=== PATIENT | male | born 1975 | race Caucasian/White ===

== ENCOUNTER → 2025-02-28 12:44 | Outpatient (REF) | payer BC, SELFPAY | LOC: HWRCS 12:44 | PROVIDERS: ATTENDING PHYSICIAN Internal Medicine Cardiovascular Disease; FAMILY PHYSICIAN Family Medicine | DX: R06.02 Shortness of breath (principal) | CPT/HCPCS: 93306 ==

== ENCOUNTER 2025-03-01 11:48 | Inpatient (IN) | payer BC, SELFPAY ==
[2025-03-01] VITALS (14 sets, daily range): BP systolic 106–150; BP diastolic 74–93; BMI 28.7
--- NOTE | 2025-03-01 10:48 | ED.GENMED ---
History of Present Illness
General
Chief Complaint: Cardiac Symptoms
Time Seen by Provider: 03/01/25 10:39
History of Present Illness
History of Present Illness:
50-year-old male presents the emergency department from cardiac services due to an abnormal stress test. He has been having exertional chest discomfort ongoing for the past year. States he had only minimal chest discomfort during the stress test
and is asymptomatic currently. No recent fevers or chills. Normally takes baby aspirin but has not taken for the past several weeks.
Review of Systems
Review of Systems
Allergies reviewed?: Yes
All Other Systems: ROS reviewed and negative except as documented in HPI and ROS
Phy Exam
Physical Exam
Physical Exam:
GEN: Well appearing, NAD, WDWN
HEENT: Oral mucosa moist, no scleral icterus
Cardiac: Regular rate and rhythm, no murmurs
Lung: No respiratory distress, no tachypnea
MSK: No gross deformity or injuries
Skin: Good color, no pallor or jaundice, no rashes
Neuro: AO x3, moves all extremities freely
Psych: Calm, cooperative
Course
Orders/Labs/Results
Orders:
Orders
03/01/25 Lunch
NPO
Allow oral meds: Yes
Allow clear liquids: No
NPO with Ice Chips: No
03/01/25 10:33
Electrocardiogram (*1) Urgent
Reason for Study: Chest Pain
EKG- Treatment ONCE
03/01/25 10:40
CR Chest - 2 Views Urgent
Comment:
Reason For Exam: chest pain
03/01/25 10:48
Aspirin Chewable [Low Strength Aspirin] 324 mg PO NOW STA
03/01/25 11:11
Complete Blood Count/With Diff Urgent
Comprehensive Metabolic Panel Urgent
Troponin I Urgent
03/01/25 11:18
Admit/Transfer Patient As Directed
Co-Sign Provider:
Level of Care: Inpatient admission
Assign to:: IVU
Physician / Group: TERRELL, Dr. Cooper
Diagnosis: Chest pain, abnormal stress test
Reason for Hospitalization: Chest pain, abnormal stress test
Expected length of stay greater than two midnights?: Yes
ELOS- Estimated Length of Stay in days: 2
I certify the patient meets the requirements for IP care: Yes
PRN Pain Medication Management As Directed
May give lesser potent ordered pain med per pt: Yes
preference::
Protocol:: Medication orders for pain may be administered in a
manner that supports deferring to patient preference
when the pt is:
- Requesting an ordered lesser potent pain medication.
Least to most potent pain medications are defined
as: acetaminophen < NSAID < tramadol < opioids
(morphine, oxycodone, hydromorphone).
- Requesting a lesser dose of the same medication IF
ORDERED.
- Requesting a less intrusive route of administration
if both routes are prescribed by the provider (PO <
IV).
03/01/25 11:20
Code Status As Directed
Resuscitation Status: Full Code
03/01/25 14:37
Bisacodyl [Dulcolax] 10 mg RECTAL [id number] PRN
Docusate W/Senna [Senokot-S] 1 tablet PO BIDPRN PRN
Polyethylene Glycol Powder [Miralax] 17 grams PO DAILYPRN PRN
03/01/25 14:37
Activity As Directed
Activity Level: Bathroom Privileges
Vital Signs As Directed
Frequency: Per unit guidelines
DX Deep Vein Thrombosis Video Routine
03/01/25 18:00
Enoxaparin Sodium [Lovenox] 40 mg SC QPM
03/02/25 06:00
Electrocardiogram (*1) IN AM
Reason for Study: Chest Pain
Cardiology Consult: Iza Cooper
Basic Metabolic Panel IN AM
03/02/25 08:00
Amitriptyline [Elavil] 50 mg PO DAILY
Rosuvastatin Calcium [Crestor] 10 mg PO DAILY
finasteride See Dose Instructions PO DAILY
tadalafil See Dose Instructions PO DAILY
thyroid (pork) [PHARMACY STUDENT Thyroid] See Dose Instructions PO DAILY
Abnormal Lab Results
03/01/25
11:11
WBC 4.1 L 10^3/uL
(4.8-10.8)
Immature Gran % 0.7 H %
(0-0.5)
Monocytes % 10.2 H %
(1.7-9.3)
Glucose 105 H mg/dl
(70-99)
ALT 78 H U/L
(0-50)
Albumin 5.2 H g/dl
(3.5-5.0)
03/01/25 11:11
03/01/25 11:11
Vital Signs
Initial and Last Documented VS:
Initial Vital Signs
Temp Pulse Resp BP Pulse Ox
98.4 F 104 16 141/85 94
03/01/25 10:29 03/01/25 10:29 03/01/25 10:29 03/01/25 10:29 03/01/25 10:29
Last Documented Vital Signs
Temp Pulse Resp BP Pulse Ox
98.1 F 95 18 144/85 96
03/01/25 14:46 03/01/25 15:00 03/01/25 14:46 03/01/25 15:00 03/01/25 14:46
MDM/Problems Addressed
MDM/Problems Addressed:
Patient will be admitted to the cardiology service for cardiac intervention, no heparin indicated per cardiology
*Critical Care Note
Total Time (30-74mins, 75-104mins- exclusive of procedures): Not Applicable
ED Attending Note
-
Portions of this chart may have been created with voice recognition software.� Occasional wrong word or��sound alike� substitutions may have occurred due to the inherent limitations of voice recognition software.
Discharge Plan
Departure
Patient Disposition: Admit
Date of Disposition: 03/01/25
Time of Disposition: 11:42
Admit to: IVU
Presentation/result/management discussed w/ accepting MD/DO: cardiology
Discharge Problem:
ACS (acute coronary syndrome)
Interventions
Interventions:
*Risk Screen - Suicide Last Done: 03/01/25 10:29
*General Assessment Last Done: 03/01/25 10:29
*ED COVID-19 Vaccine History Last Done: 03/01/25 10:29
*Nursing Disposition Last Done: 03/01/25 13:30
ED- Cardiac Assessment Last Done: 03/01/25 11:19
ED- Pulmonary Assessment Last Done: 03/01/25 11:19
Discharge Date and Time
Discharge Date/Time: 03/01/25 14:03
--- NOTE | 2025-03-01 11:02 | CON.CAR ---
Addendum entered and electronically signed by Brenda Worley PA-C 03/02/25 09:28:
This document to be used as H&P.
Addendum entered and electronically signed by Iza Cooper DO 03/01/25 11:43:
I saw and examined the patient.
The Towing Pilot's note was reviewed and I agree with the note.
Comment: Patient was seen and examined in cardiac services following stress echocardiogram which was arranged by his outpatient tool planer set up operator, Dr. Winchester for exertional chest pain over the last several months. He reports chest pain that occurs
only with more moderate exertion and was relieved with rest that at times starts in his right shoulder but goes across to his chest. He denies rest pain.An outpatient echocardiogram 02/28/2025 found mildly reduced LV systolic function visually
estimated 40% with global hypokinesis and grade 1 diastolic dysfunction. No hemodynamically significant valve pathology with mildly thickened mitral valve leaflets and mild mitral annular calcification with mild MR. Aortic sclerosis without
significant stenosis or insufficiency and no evidence of pulmonary hypertension with trace tricuspid regurgitation. Exertional chest pain was reproduced during stress echocardiogram with abnormal stress EKG with ST depressions and stress
echocardiographic imaging with mild hypokinesis of the anterior septum and apical septum. Chest pain resolved at rest. He is currently chest pain-free.
General: No acute distress, AAOX3
Heart: Regular, positive S1/S2, Negative S4, No murmur
Lungs: CTA b/l, negative wheezes/rales/rhonchi
Abd: Positive BS, NT/ND, neg rebound/rigidity/guarding
Ext: No edema
Neuro: nonfocal
Plan:
Abnormal stress echocardiogram with exertional chest pain concerning for angina
-Currently chest pain-free and hemodynamically stable
-Clinically, no evidence of heart failure
-Discussed study findings and recommendations for coronary angiogram
-Patient will be sent to the ER with plan for left heart catheterization later today.
-Start aspirin 81 mg daily
-Check lipid profile; continue rosuvastatin
-Lab work to be done in ED to include troponin
History of non-Hodgkin's lymphoma with prior chest radiation and Adriamycin in
History of hyperlipidemia on rosuvastatin
History of hypothyroidism�continue thyroid replacement therapy and check TSH
BPH
Plan reviewed with patient's outpatient tool planer set up operator, interventional cardiology and patient's father. All questions answered
Original Note:
Consultation
Consultation Request
Performing Provider: Dr. Cooper
Reason for Consultation: H&P for abnormal stress echo with chest pain on treadmill
Medical History
-
History of Present Illness:
Patient was seen by Dr. Winchester in the office 02/27/25 for chest pain and BUENROSTRO. Chest pain with activity that resolves with rest. Chest pain happens with all exertion. No resting pain. He was referred for stress echo that was abnormal as noted above.
Patient had chest pain with exercise that improved after several minutes of rest with ECG changes that persisted beyond resolution of pain. SE results reviewed with patient and he was referred to the ER. Patient was given aspirin 324 mg in the ER.
He is pain free. Labs pending
PMH:
h/o Hodgkin's lymphoma treated with chest radiation and Adriamycin 1989
HTN
Hyperlipidemia
Past Medical History
Past Medical History: Other (in HPI)
Past Surgical History: None
Social History
Tobacco: Non-Smoker
Alcohol: Other (1-2 drinks two to three times a week, sometimes more on the weekends)
Drug: None
Family History
Family History: Other (father with Afib)
Allergies / Home Medications
Allergy/AdvReac Type Severity Reaction Status Date / Time
bee venom protein (honey bee) Allergy Anaphylaxis Verified 03/01/25 10:33
Review of Systems
-
History Source: Patient
All other systems: Negative unless noted
Physical Exam
Vital Signs
Temp Pulse Resp BP Pulse Ox
98.4 F 104 16 141/85 94
03/01/25 10:29 03/01/25 10:29 03/01/25 10:29 03/01/25 10:29 03/01/25 10:29
GEN: NAD. AAOx3
HEENT: EOMI, MMM
LUNGS: RA. CTA B/L, no wheeze
CV: SR on corporate learning consultant. Reg, S1/S2, no murmur
ABD: soft, BS+, NT, ND
EXT: No clubbing, cyanosis, lesions or edema B/L
NEURO: Gross non-focal
SKIN: Warm, dry and pink. No rash
Lab Results
CBC and CMP ordered and results pending
Impression / Plan
-
PCP: Dr. Sosa
Card: Dr. Winchester
Impression:
Chest pain, [place]
Abnormal stress echo 03/01/25
h/o Hodgkin's lymphoma treated with chest radiation and Adriamycin 1989
HTN
Hyperlipidemia
Stress echo 03/01/25: Patient completed 7 min Cheng protocol for 87% MPHR, new mid anteroseptal, apical septal hypokinesis and reduction of left ventricular systolic function post exercise, LVEF at rest visually estimated 50-55% and post exercise
45-50%, exertional limiting chest pain during study that resolved with rest
Plan:
-Patient was seen by Dr. Winchester in the office 02/27/25 for chest pain and BUENROSTRO. Chest pain with activity that resolves with rest. Chest pain happens with all exertion. No resting pain. He was referred for stress echo that was abnormal as noted above.
Patient had chest pain with exercise that improved after several minutes of rest with ECG changes that persisted beyond resolution of pain. SE results reviewed with patient and he was referred to the ER. Patient was given aspirin 324 mg in the ER.
He is pain free. Labs pending.
-ECG reviewed by me with 1.[address] depression in leads II, III, AVF, V5, V6
-Talked with patient about risk vs benefit of cath based on his symptoms on the treadmill with abnormal stress test and persistent ECG changes. Patient is agreeable to cardiac cath
-Patient given aspirin 324 mg x1 in the ER. Patient was not taking an aspirin a day prior to admission
-Patient with h/o HTN and he did not take his usual dose of olmesartan/HCTZ 20/12.5 mg daily
-LDL 137, TG 276 on 02/26/25. Patient is chronically on Crestor 10 mg daily
-Patient also with h/o chest radiation and Adriamycin for Hodgkin's lymphoma in 1989.
[2025-03-01] MEDS: LOW STRENGTH ASPIRIN 324 MG PO (11:11)
[2025-03-01 11:20] LABS: % Eosinophils 2.7 % (0-6); % Immature Granulocytes 0.7 % (0-0.5); % Lymphocytes 30.5 % (20.5-51.1); % Monocytes 10.2 % (1.7-9.3); % Neutrophils 54.9 % (42.2-75.2); Absolute Eosinophils 0.1 10^3/uL (0-0.7); Absolute Lymphocytes 1.3 10^3/uL (1.2-3.4); Absolute Monocytes 0.4 10^3/uL (0.1-0.6); Absolute Neutrophils 2.3 10^3/uL (1.4-6.5); Hematocrit 43.3 % (39.0-52.0); Mean Corp Hgb Conc. 34.6 g/dL (33.0-37.0); Mean Corpuscular Hgb 27.9 pg (27.0-31.0); Mean Corpuscular Volume 80.6 fL (80.0-94.0); Mean Platelet Volume 9.3 fL (7.4-10.4); Nucleated Red Blood Cells % 0 % (-); Platelet Count 291 10^3/uL (130-400); Red Blood Cell Count 5.37 10^6/uL (4.70-6.10); Red Cell Dist. Width 13.1 % (11.5-14.5); White Blood Cell Count 4.1 10^3/uL (4.8-10.8)
[2025-03-01 11:40] LABS: ALT (SGPT) 78 U/L (0-50); AST (SGOT) 53 U/L (17-59); Albumin 5.2 g/dl (3.5-5.0); Alkaline Phosphatase 75 U/L (38-126); Blood Urea Nitrogen 19 mg/dl (9-20); Carbon Dioxide 25 mmol/L (22-30); Chloride 102 mmol/L (98-107); Estimated Creatinine Clearance 92 ml/min; Glucose 105 mg/dl (70-99); Potassium 4.3 mmol/L (3.5-5.1); Sodium 139 mmol/L (135-145); Total Bilirubin 0.8 mg/dl (0.2-1.3); Total Protein 8.2 g/dl (6.3-8.2); eGFR > 60.00
[2025-03-01 11:51] LABS: Troponin I 0.026 ng/ml
[2025-03-01] MEDS: NSS 1000 IV (15:44)
[2025-03-01 16:44] LABS: Hematocrit 41.7 % (39.0-52.0); Hemoglobin 14.5 g/dL (13.0-18.0); Mean Corp Hgb Conc. 34.8 g/dL (33.0-37.0); Mean Corpuscular Hgb 28.2 pg (27.0-31.0); Mean Corpuscular Volume 81.1 fL (80.0-94.0); Mean Platelet Volume 9.7 fL (7.4-10.4); Platelet Count 309 10^3/uL (130-400); Red Blood Cell Count 5.14 10^6/uL (4.70-6.10); White Blood Cell Count 4.5 10^3/uL (4.8-10.8)
--- NOTE | 2025-03-01 16:48 | CM ---
Addendum entered by Elvie Adame RN 03/02/25 11:32:
Gave family Cardiac Surgery Book. Reviewed postoperative instructions with patient and his family. Patient is agreeable to home visit by CT Transitional RN. Plan is for the patient to return to his parents home with CT Transitional RN. CM to
follow
Original Note:
Chart reviewed. Patient is independent of ADLS, lives alone in a 3 STH, 6 MACEY, 0 DME. Patient is here visiting from [place]. Currently staying with his mother in a 2 STH, 2 MACEY. Patient is waiting on CT evaluation. Plan is for the
patient to return home with his mother. CM to follow
--- NOTE | 2025-03-01 16:49 | CONSULT.CT ---
Consultation
-
Date/Time Consultation Requested: 03/01/25
Date/Time Consultation Performed: 03/01/25
Requesting Provider: Brittany Ramirez
Performing Provider: Alexandrea BRANDON for Yoni Kent MD
Reason for Consultation: CABG evaluation
Patient History
Physicians
Family Physician: none
Outpatient Multimedia Technician: Berto Winchester
Inpatient Multimedia Technician: Iza Cooper -[facility] Cardiology
History of Present Illness
50-year-old male with past medical history significant for Hodgkin's lymphoma age 14 status post chemotherapy with Adriamycin and radiation, hypertension, hyperlipidemia, presents to [facility] emergency room on 03/01/2025 following
an abnormal outpatient stress echo today. Patient underwent a stress echo for evaluation of exertional right shoulder discomfort that travels across the chest and has been present approximately 1 year. Patient experienced exertional chest pressure
during the test with abnormal stress EKG with ST depressions and stress echocardiographic imaging with mild hypokinesis of the anterior septum and apical septum. Pain resolved with rest. An outpatient echo performed 02/28, reported an EF of 40%.
Patient underwent left heart cath today which reported triple vessel disease. Official report pending
Pertinent negatives: Denies CVA/TIA, asthma, dysphagia, bowel/bladder disease, DVT/PE
Past Medical History
Past Medical History: Cancer (Hodgkin's lymphoma age 14-treated with Adriamycin/radiation to chest), HTN, Hypercholesterolemia and Hypothyroidism
Past Surgical History
Past Surgical History: Other (Mohs procedures on face and shoulder)
Family History
Mother: Still Living
Father: Still Living (A-fib)
Family Medical History: Other (Cousins with factor V Leiden deficiency)
Social History
Alcohol: Occasional (1-2 drinks 3 times weekly)
Drug: None
Tobacco: Non-Smoker
Personal: Single
Living: Alone
Employment: Employed
Allergies
Allergy/AdvReac Type Severity Reaction Status Date / Time
bee venom protein (honey bee) Allergy Anaphylaxis Verified 03/01/25 10:33
Home Medications
�Medication �Instructions �Recorded �Confirmed �Type
amitriptyline 50 mg tablet 50 mg PO HS 03/01/25 03/01/25 History
finasteride 1 mg tablet 1 mg PO HS 03/01/25 03/01/25 History
olmesartan 20 1 tab PO HS 03/01/25 03/01/25 History
mg-hydrochlorothiazide 12.5 mg
tablet
omeprazole magnesium 20 mg 20 mg PO DAILY 03/01/25 03/01/25 History
tablet,delayed release (Prilosec
OTC)
rosuvastatin 10 mg tablet 10 mg PO HS 03/01/25 03/01/25 History
tadalafil 20 mg tablet 20 mg PO DAILYPRN PRN ed 03/01/25 03/01/25 History
thyroid (pork) 120 mg tablet (DEBONING TEAM LEADER 120 mg PO DAILY 03/01/25 03/01/25 History
Thyroid)
Review of Systems
-
History Source: Patient
General: Reports No Symptoms
HEENT: Reports No Symptoms
Respiratory: Reports No Symptoms
Cardiac: Reports Chest Pain (Exertional)
Abdomen/GI: Reports No Symptoms
: Reports No Symptoms
Musculoskeletal: Reports No Symptoms
Skin: Reports No Symptoms
Neurological: Reports No Symptoms
Vascular: Reports No Symptoms
Physical Exam
Vital Signs
Temp 98.1 F 03/01/25 14:46
Temp route: Oral 03/01/25 14:46
Pulse 95 03/01/25 15:00
Rhythm: Normal sinus rhythm 03/01/25 14:40
Resp Rate 18 03/01/25 14:46
Blood pressure 144/85 03/01/25 15:00
Blood pressure extremity used: Left upper arm 03/01/25 14:46
Position: Sitting 03/01/25 14:46
MAP (cuff-Nasreen Monitor) 100 03/01/25 15:00
SaO2 96 03/01/25 14:46
Oxygen Mode of Delivery Room air 03/01/25 14:46
Can the patient verbally communicate their pain? Yes 03/01/25 16:19
Actual Weight 90.6 kg 03/01/25 11:08
Body Mass Index (BMI) 28.7 03/01/25 11:08
Labs
03/01/25 16:18
03/01/25 11:11
Troponin I 0.026 ng/ml 03/01/25 11:11
Diagnostic Studies
Stress Echo 03/01/25:
New mild hypokinesis of the mid anteroseptum and apical septum with blunted augmentation of left ventricular systolic function. LVEF post visually estimated 45-50%.
TTE 02/28/25:
LVEF 40%. Stage I diastolic dysfunction suggestive of abnormal relaxation.
Normal right ventricular size and function.
Mild mitral regurgitation. Trace tricuspid regurgitation. No aortic stenosis/regurgitation
Exam
General: Well Developed, Well Nourished and No Apparent Distress
HEENT: Normocephalic, Anicteric and Moist Mucous Membranes
Neck: Trachea Midline
Respiratory: Clear
Cardiac: S1/S2 and Regular Rhythm
GI: Soft, Non Distended and Normal Bowel Sounds
Rectal: Deferred by Provider
Skin: Warm and Dry
Neuro: AO x 3, No Motor Deficits and Nonfocal/Grossly Intact
Extremities: Pulses (+2/4 DP pulses B/L)
Lymph: No Lymphadenopathy
Psych: Calm
Assessment / Plan
-
50-year-old male admitted 03/01/25 for abnormal stress echo today and found to have 3 VCAD
- case d/w Dt Kent
- pre-op diagnostics ordered
Data Reviewed
-
EKG: Report Reviewed by me and Discussed with Physician
Customer Support Associate: Discussed with Physician
Echo: Report Reviewed by me and Discussed with Physician
Labs: Labs Reviewed by me and Discussed with Physician
[2025-03-01 17:20] LABS: Troponin I 0.055 ng/ml
[2025-03-01] MEDS: PROTONIX 40 MG PO (17:39)
[2025-03-01] MEDS: PHATP 1 UNIT PO (18:00)
[2025-03-01] MEDS: TYLENOL 650 MG PO (18:53)
--- NOTE | 2025-03-01 19:48 | ITS.CL.CATH ---
Wallpaper Hanger Helper - Catheterization
Cardiac Catheterization
Procedure Report:
LEFT HEART CATHETERIZATION
Date of Procedure: March 01, 2025
Referring: Kurt Winchester
PROCEDURES:
1. Left heart catheterization, coronary angiogram.
2. Ultrasound-guided access.
3. Moderate sedation
INDICATION: Concern for acute coronary syndrome
ACCESS: Right radial artery, 6 Malaysian sheath, under ultrasound-guided
Ultrasound was utilized for vascular access. The radial artery was visualized under ultrasound, and the vessel was patent and pulsatile. An image was stored permanently in the patient's medical record. Under direct ultrasound guidance, a 6 Malaysian
sheath was inserted into the artery using a micropuncture kit through a modified Seldinger technique.
HEMODYNAMICS : (mmHg)
AO (s/d) : 125/77
LV (s/d) : 128/9
LVEDP :15
CORONARY FINDINGS
DOMINANCE: Right
LEFT MAIN: The left main artery is a large-caliber vessel with mild 10 to 20% distal tapering. He gives rise to the left anterior descending artery, a medium to large caliber ramus intermedius branch and the left circumflex artery.
LEFT ANTERIOR DESCENDING: The left anterior descending artery is a large-caliber vessel which is rise to multiple small caliber diagonal branches as it courses to the anterior interventricular groove and wraps around the apex. There is a 90%
stenosis in the proximal LAD and a 60 to 70% stenosis in the mid LAD. Distal LAD is a good bypass target.
RAMUS INTREMEDIUS: The ramus intermedius branch is a large-caliber vessel with 100% chronic total occlusion at the ostium with robust right to left collaterals. The ramus intermedius branch is a good bypass target
CIRCUMFLEX: The left circumflex artery is a medium caliber vessel which gives rise to 1 major medium to large caliber obtuse marginal branch. Proximal OM1 has a chronic total occlusion with robust right to left collaterals. OM is a good bypass
target.
RIGHT CORONARY ARTERY: The right coronary artery is a medium to large caliber, dominant vessel which gives rise to the right posterior descending artery and a small right posterolateral system. This is a moderate to severely ectatic vessel with 60
to 70% stenosis in the proximal portion and 50 to 60% stenosis diffusely in the mid RCA. The RCA also provides robust collaterals to an occluded OM and ramus intermedius arteries.
SEDATION: 27 minutes of procedural sedation was utilized. An independent medical office receptionist assistant was present to assist with and help manage the patient's level of consciousness and physiologic status.
RADIATION SUMMARY: Fluoro Time (min): 2.6, Dose (mGy): 621, DAP (Gy.cm2) : 34.59
Closure Device: Vascular band over right radial artery, 10 cc of air.
CONCLUSIONS
1. Significant multivessel coronary artery disease.
2. High normal LVEDP at 15 [address]
RECOMMEND[address] surgery consult for consideration for coronary artery bypass grafting to LAD, ramus intermedius artery, OM, RPDA.
2. Aggressive management of cardiovascular risk factors.
3. Optimization of goal-directed medical therapy for ischemic cardiomyopathy.
4. Wean radial band per protocol.
5. Eventual referral for outpatient cardiac rehab.
Copy to: Kurt Winchester
Brittany Ramirez MD, FACC, [facility]
[2025-03-01] MEDS: ELAVIL 50 MG PO (21:11)
[2025-03-01] MEDS: HEPARIN 25000 UNITS/250 ML IV (21:12)
[2025-03-01 23:49] LABS: Troponin I 0.071 ng/ml
[2025-03-02] VITALS (13 sets, daily range): BP systolic 95–148; BP diastolic 67–101; BMI 29.0
[2025-03-02 03:51] LABS: INR 0.96; PT 13.3 Sec (11.4-14.6)
[2025-03-02 03:52] LABS: APTT 55.6 Sec (23.4-35.0)
[2025-03-02 04:02] LABS: Troponin I 0.106 ng/ml
[2025-03-02 04:05] LABS: ALT (SGPT) 72 U/L (0-50); AST (SGOT) 46 U/L (17-59); Albumin 4.5 g/dl (3.5-5.0); Alkaline Phosphatase 70 U/L (38-126); Blood Urea Nitrogen 19 mg/dl (9-20); Calcium 9.6 mg/dl (8.4-10.2); Carbon Dioxide 22 mmol/L (22-30); Chloride 107 mmol/L (98-107); Direct Bilirubin 0.1 mg/dl (0.0-0.4); Estimated Creatinine Clearance 92 ml/min; Glucose 96 mg/dl (70-99); Potassium 4.4 mmol/L (3.5-5.1); Sodium 140 mmol/L (135-145); Total Bilirubin 0.7 mg/dl (0.2-1.3); Total Protein 7.5 g/dl (6.3-8.2); eGFR > 60.00
[2025-03-02] MEDS: NON-FORMULARY ITEM 120 MG PO (05:56)
[2025-03-02] MEDS: PROTONIX 40 MG PO (07:17)
[2025-03-02] MEDS: CRESTOR 20 MG PO (07:17)
[2025-03-02] MEDS: BACTROBAN 2% OINTMENT 1 APPLIC NASAL ×2 (09:19→20:33)
[2025-03-02] MEDS: LOPRESSOR 25 MG PO (09:20)
[2025-03-02] MEDS: MAGNESIUM OXIDE 500 MG PO (09:20)
[2025-03-02 09:30] LABS: Glycohemoglobin (HgbA1c) 5.7 % (4.0-5.6)
--- NOTE | 2025-03-02 09:42 | PTCARENOTE ---
Patient transferred to OR, patient stable, all pre OR workout was completed.
[2025-03-02 09:46] LABS: Troponin I 0.087 ng/ml
[2025-03-02 10:18] LABS: Urine Albumin 1+ (Neg - Trace); Urine Bilirubin Negative (Negative); Urine Character Clear (Clear); Urine Color Yellow; Urine Glucose Negative (Negative); Urine Ketone Negative (Negative); Urine Leukocyte Negative (Negative); Urine Nitrite Negative (Negative); Urine Occult Blood Negative (Negative); Urine Urobilinogen Negative (Neg - 1+)
[2025-03-02 10:27] LABS: ACT+ - POC 107 Seconds (82-134)
[2025-03-02 10:28] LABS: Urine Mucus Few
[2025-03-02 10:29] LABS: Urine Amorphous Seen; Urine Granular Cast 0-2 /LPF (0); Urine Hyaline Cast 0-2 /LPF (0-2); Urine Squamous Cell 0-2 /LPF (Few)
[2025-03-02 10:30] LABS: Urine Red Blood Cell 0-2 /HPF (0-2); Urine White Cell 0-2 /HPF (0-5)
[2025-03-02 12:01] LABS: ACT+ - POC 578 Seconds (82-134)
[2025-03-02 12:26] LABS: B.E. - POC -1.5 mmol/L; Glucose - POC 103 mg/dl (70-99); HCO3 - POC 24 mmol/L (21-28); Hematocrit - POC 41 % PCV (42-52); Hemodilution- POC No; Hemoglobin Calculated - POC 13.9; Ionized Calcium - POC 1.18 mmol/L (1.15-1.33); Lactate - POC 0.48 mmol/L (0.36-0.75); O2 Saturation %Calculated-POC 99.8 % (94-98); PCO2 - POC 43 mmHg (35-48); PO2 - POC 239 mmHg (83-108); Potassium - POC 4.2 mmol/L (3.5-5.1); Sodium - POC 143 mmol/L (136-145); Specimen Type - POC Arterial; pH - POC 7.36 (7.35-7.45)
[2025-03-02 12:39] LABS: ACT+ - POC 611 Seconds (82-134)
[2025-03-02 12:54] LABS: B.E. - POC 0.8 mmol/L; Glucose - POC 121 mg/dl (70-99); HCO3 - POC 26 mmol/L (21-28); Hematocrit - POC 31 % PCV (42-52); Hemodilution- POC Yes; Hemoglobin Calculated - POC 10.4; Ionized Calcium - POC 0.94 mmol/L (1.15-1.33); Lactate - POC 0.52 mmol/L (0.36-0.75); PCO2 - POC 42 mmHg (35-48); PO2 - POC 409 mmHg (83-108); Potassium - POC 5.9 mmol/L (3.5-5.1); Sodium - POC 135 mmol/L (136-145); Specimen Type - POC Arterial
[2025-03-02 13:03] LABS: ACT+ - POC 496 Seconds (82-134)
[2025-03-02 13:52] LABS: B.E. - POC -0.8 mmol/L; Glucose - POC 183 mg/dl (70-99); HCO3 - POC 24 mmol/L (21-28); Hematocrit - POC 34 % PCV (42-52); Hemodilution- POC Yes; Hemoglobin Calculated - POC 11.7; Ionized Calcium - POC 1.02 mmol/L (1.15-1.33); Lactate - POC 1.37 mmol/L (0.36-0.75); O2 Saturation %Calculated-POC 99.9 % (94-98); PCO2 - POC 42 mmHg (35-48); PO2 - POC 270 mmHg (83-108); Potassium - POC 6.3 mmol/L (3.5-5.1); Sodium - POC 136 mmol/L (136-145); Specimen Type - POC Arterial; pH - POC 7.38 (7.35-7.45)
[2025-03-02] MEDS: ANCEF 10 IV (13:56)
[2025-03-02] MEDS: ANCEF 15 MG IV (13:56)
[2025-03-02 14:02] LABS: B.E. - POC -4.1 mmol/L; Glucose - POC 193 mg/dl (70-99); HCO3 - POC 22 mmol/L (21-28); Hematocrit - POC 36 % PCV (42-52); Hemodilution- POC Yes; Hemoglobin Calculated - POC 12.2; Ionized Calcium - POC 1.34 mmol/L (1.15-1.33); O2 Saturation %Calculated-POC 99.8 % (94-98); PCO2 - POC 45 mmHg (35-48); PO2 - POC 234 mmHg (83-108); Potassium - POC 4.4 mmol/L (3.5-5.1); Sodium - POC 142 mmol/L (136-145); Specimen Type - POC Arterial
--- NOTE | 2025-03-02 14:03 | W.PN.UPDATE ---
Update Note
Progress Note Update
STS RISK SCORE
Procedure Type:�Isolated CABG
Perioperative Outcome Estimate %
Operative Mortality 0.34%
Morbidity & Mortality 2.89%
Stroke 0.486%
Renal Failure 0.3%
Reoperation 1.77%
Prolonged Ventilation 1.26%
Deep Sternal Wound Infection 0.104%
Long Hospital Stay (>14 days) 0.994%
Short Hospital Stay (<6 days)* 75.5%
Clinical Summary
Planned Surgery: Isolated CABG, Urgent, First cardiovascular surgery
Demographics: 50 year old, White, male, 90.6kg, 178cm, BMI: 28.6 kg/m�
Lab Values: Creatinine: 1 mg/dL, Hematocrit: 41.7%, WBC Count: 4.5 10�/�L, Platelet Count: 510519 cells/�L
PreOp Medications: LEANDRA Inhibitors/ARBs <=48 hrs
Substance Abuse: Never smoker
Risk Factors / Comorbidities: Hypertension
Cardiac Status: NYHA Class II, Ejection Fraction = 40%
Coronary Artery Disease: 3 vessels diseased, Stable Angina
Valve Disease: Mild MR, Trivial/Trace TR
--- NOTE | 2025-03-02 14:20 | CM ---
Reviewed chart. Mr. Sarbjit cabrera sin operating room today. Prior to admission he is staying with his mother in a two story home with two steps to enter. Prior to admission he was independent with ambulation and adls. He does not have any DME in the
home. Medical work-up in progress. The discharge plan is to return to his mother home and a home visit by the Transitional Care Nurse when medically stable.
[2025-03-02 14:21] LABS: ACT+ - POC 118 Seconds (82-134)
--- NOTE | 2025-03-02 14:52 | W.PN.CT.SURG ---
CT Surgery Operative Note
-
CARDIAC SURGERY OPERATIVE REPORT
Preoperative Diagnosis: Multivessel Coronary Artery Disease with Prior Chest Irradiation
Postoperative Diagnosis: Same
Procedure(s) Performed:
1. Standard Sternotomy with Aortic and RA cannulation
2. Internal Mammary Artery Harvesting, Bilateral
3. Multi Arterial Coronary artery bypass grafting x 4 (In situ ABREU to LAD, LIZANDRO T of ABREU to Ramus to OM, Ao to RSVG to RPDA)
4. Endoscopic vein harvesting of RLE
5. Left atrial appendage Exclusion (35mm Clip, serial #[id number])
6. Placement of Temporary Ventricular Pacing Wire
7. Transesophageal echocardiography
Date of Surgery: 03/02/25
Comorbidities:
1. Unstable Angina
2. Multi Vessel CAD
3. Hodgkin's Lymphoma with prior Mantle Radiation and Adriamycin
4. HTN
5. HLD
6. Ischemic Cardiomyopathy with Regional Wall Motion Abn
Attending Surgeon: Yoni Kent MD, MS
Assistants: Elvie Zambrano PA-C (present and necessary to list of first job ideas, endoscopic vein harvest, retraction, suction, exposure, suture management, and wound closure under my direction)
Anesthesiology: Breezy Gallagher MD and Tomas Lazcano CRNA
Scrub and Circulating RNs: Denae Mace RN, Vijaya Parham RN
Custom Bike Builder: Rohini Alba CCP
Anesthesia: GETA
EBL: per perfusion records
Products: None
CPB Time: 72 minutes
Aortic Cross Clamp Time: 65 minutes
Implants:
1. 35mm clip serial #[id number]
2. Gold X plate, 16mm screws x 6, silver square plate, 14 mm screws x 4
Indication(s) for Procedures: This is a 50-year male who has been having intermittent unstable angina, he underwent left heart catheter demonstrated significant multivessel coronary artery disease involving the proximal LAD as well as a large ramus
and OM branch. Given his young age, he is referred to surgery for surgical revascularization. Plan is the multi arterial grafting however his radial artery was not usable as he had incomplete arches bilaterally and so we plan to do bima grafting
with a vein graft to the right.
Conduit(s) Quality:
ABREU -excellent/good quality and caliber and adequate length
LIZANDRO�excellent/good quality and caliber with a segment of approximately 5 cm taken from the right chest
RSVG -good/larger caliber vessel with some minor varicosities but overall decent quality conduit
Target(s) Quality:
RCA/PDA -excellent/good flow and test dosing of antegrade as well as on flow probe assessment
OM -excellent/good sized target, the LIZANDRO was grafted here in the wona-av-snbn anastomosis with 8-0 Prolene, flow probe assessment demonstrated a flow of approximately 20 to 25 cc a minute with low pulsatility indix
Ramus -large caliber vessel, the LIZANDRO was used to perform a sequential graft here and pgag-gj-[id number] anastomosis, flow was approximately 32 cc a minute with a pulsatile index of 2.0
LAD -excellent/large caliber vessel, the ABREU was grafted here approximately, flow on testing was approximately 10 to 15 cc a minute at a pulse index of 4.5-5
Findings: His left ventricular ejection fraction preoperatively was not normal, his LVEF was approximately 40 to 45% with regional wall motion abnormalities mostly to the anterior apical apical and lateral uribe. Following surgery his EF remained
the same at approximately 45%, the apical and lateral uribe remain the same as preoperatively, mild hypokinesis, the septal region did improve and appeared to be more contractile. ST segments were isoelectric at the end of the case. His mitral
valve did have trace MR initially that progressed to approximately moderate following the clamp around and then improved back to mild. The ABREU was harvested in a skeletonized fashion. The LIZANDRO was also harvested in a skeletonized fashion and
grafted as a T graft off the midportion of the ABREU following bypass grafting, test dose cardioplegia was given down each distal and confirmed patency and hemostasis. At the end of the case, the distal end of the ABREU graft was a bit redundant and
so was tacked to the pericardium with pericardial fat in order to promote a lazy S configuration. Flow probe was used to assess all grafts which were adequate. He did not require any blood products, came off in sinus rhythm and did not require any
pacing, and did not require any other tropic support.
Description of Procedure: The patient was taken to the operating room. Their identity and procedure to be performed were verified and they were positioned supine on the operating table. Induction via general anesthesia with endotracheal intubation
was performed and central venous access and arterial monitoring were inserted. A preoperative transesophageal echocardiogram was performed to assess cardiac function and valvular function. The patient was then prepped and draped from chin to feet in
a sterile fashion. A preoperative time-out was performed with all members of the team present. A midline chest incision was performed along with median sternotomy. Simultaneous endoscopic access of the right lower extremity for saphenous vein
harvest was obtained along with administration of an initial 5,000 units of IV heparin. A RulTract sternal retractor was positioned to exposure the left internal mammary bed. The mammary was harvested and found to have good flow. A bulldog clamp was
applied to the distal end of the mammary after dividing it. It was wrapped in a papaverine soaked RayTec and replaced back into the left hemithorax. The Rultract was then relocated to the right hemithorax and the LIZANDRO was harvested in a similar
fashion in the midportion before the bifurcation and then proximally was taken as a free graft. The distal end was cut first and verified to have excellent flow. The RulTract was exchanged for a median sternal retractor. The innominate vein was
isolated. Full heparinization was given (a total of 50,000 units). We created a pericardial well. While fully heparinized, the ABREU was then brought back into the field and a T graft formation was formed with the LIZANDRO and end to side anastomosis
using 8-0 Prolene and secured with a micro core knot. 1 or 2 repair sutures were placed. There was excellent pulsatile flow in both grafts. It was wrapped up in a papaverine soaked blanket and placed back inside the left hemithorax. The aortic
cannulation site was chosen where it was soft, pliable, and free of calcium. Cannulation was performed with an arterial cannula in the ascending aorta and a triple-stage venous cannula through the right atrial appendage. The arterial cannula line
had an appropriate bounce and correlating pressures with test dosing. Next, a root vent/antegrade cannula was inserted into the ascending aorta. The ACT was confirmed to be over 400 and retrograde autologous priming was performed before commencing
cardiopulmonary bypass. The pulmonary artery was away from the aorta to facilitate a clamp site. The aortic cross-clamp was placed after decreasing the flow on the bypass and mean arterial pressure. A total of 1.2L initial dose of
antegrade Del-Nido cardioplegia solution was given and planned for re-dosing every 75 minutes as necessary. There was rapid electro-mechanical arrest of the heart at 230 cc of cardioplegia. The left ventricle was observed for distention on
echocardiogram and manual palpation. Cold slush was placed into a sponge and topically on the RV while we systemically cooled to 34 degrees centigrade.
I positioned the heart to expose the distal right coronary at the posterior descending artery. A miami blade was used to expose the coronary and perform the arteriotomy. Coronary Gupta scissors were used to enlarge the incision. The saphenous vein
was trimmed and beveled to an appropriate size. The distal anastomosis was performed using 7-0 prolene in an end-to-side fashion. Antegrade cardioplegia was administered into the graft. Appropriate hemostasis and flow were confirmed. The graft was
measured for length to the aorta and cut. Next the heart was then rotated medially and the left atrial appendage was clipped with a 35 mm device after dividing the ligament of Lexa. A suitable site on the obtuse marginal was chosen. We
dissected and prepared the distal target in a similar fashion. An end-to-side anastomosis was created with a 8-0 prolene and secured with a micro core knot. There is excellent visual flow in the lateral wall territory upon removal of the bulldog
clamp off of the main ABREU graft. Appropriate hemostasis and flow were confirmed. At this point I laid out the LIZANDRO in order to accommodate a sequential graft to the large ramus. The ramus was paired a similar fashion with a Galax blade and a
small coronary tracheotomy was created. The underbelly of the LIZANDRO graft was also incised and a hzbo-ug-qpnr anastomosis was graded with 8-0 Prolene in a running fashion. It was secured with a micro core knot. I then let go of the bulldog on the
main ABREU graft and there was excellent visual flow in the lateral wall. The bulldog was then replaced on the main ABREU portion before the T graft. A suitable target on the mid left anterior descending was identified. We dissected and prepared the
distal target in a similar fashion. The distal end of the mammary was prepped and beveled to size. We verified orientation and length of the TAWANNA and found brisk flow. An end-to-side anastomosis was created with a 7-0 prolene. We temporarily released
the bulldog clamp on the mammary to inspect flow. Perfusion to the LAD territory was visualized and hemostasis was confirmed. The bull clamp was replaced on the main mammary. The heart was filled and the root was distended with antegrade
cardioplegia to make final assessment of graft length and orientation. We created 1 aortotomy using a #11 blade then a 4.0mm aortic punch. The proximal anastomoses were created in an end-to-side fashion using 6-0 prolene. At the the same time, we
re-warmed to 36.5 degrees centigrade. The bulldog clamp was removed from the mammary. Temporary bipolar ventricular pacing wires were placed on the base of the right ventricle. The patient was placed in a Trendelenburg position and flows on bypass
were lowered. The aortic cross clamp was removed and flows were slowly brought back up. A 30-gauge needle was used to de-air the vein grafts. All bypass grafts were inspected and were free from kinking or twisting. The distal and proximal
anastomoses appeared hemostatic. Once transesophageal echocardiography appeared satisfactory for de-airing, the flows were temporarily lowered for root vent removal. After verifying acceptable parameters, we initiated weaning from cardiopulmonary
bypass. Once we were off cardiopulmonary bypass, the venous cannula was clamped and removed. A test dose of protamine was administered and the patient was monitored for any adverse reaction before resuming protamine. Once half of the protamine dose
was delivered, pump suckers were turned off and the systolic blood pressure was lowered for aortic decannulation. The aortic cannula was removed and pursestrings were tied down. All cannulation sites were oversewn with a 4-0 prolene. The mammary bed
was inspected and hemostasis was confirmed. Once the mediastinum was hemostatic, 19Fr Dinh drain was placed in the left and right pleural cavity and two 24Fr Dinh drains were placed within the pericardium. The sternum was approximated with 4 #7
single and 3 #8 double stainless steel wires. As both internal mammary arteries were taken, the sternum was reinforced with a gold X plate using 16 mm screws x 6 and a silver square plate using 14mm x 4 screws.. Fascia was approximated with #1
vicryl suture. The subcutaneous, dermis and epidermis were closed in layers in a running fashion. The skin wound was cleansed and dressed.
All instrument, sponge, and needle counts were confirmed to be correct x 2 at the end of the operation. The patient was transferred to the cardiac intensive care unit in critical but stable condition.
I, Dr. Yoni Kent, was present, scrubbed for, and performed all critical elements of this procedure.
Yoni Kent MD, MS
Cardiothoracic Surgeon
[facility]
This operative dictation was created using the [employer] dictation system. Please excuse any grammatical, typographical, or 'sound alike' errors
[2025-03-02 15:17] LABS: Glucose - Point of Care 142 mg/dl (70-99)
[2025-03-02 15:24] LABS: B.E. -4.7 mmol/L; HCO3 22.1 mmol/L (21-28); Ionized Calcium 1.12 mMOL/L (1.15-1.33); O2 Saturation % 98.6 % (94-98); PCO2 47 mmHg (35-48); PO2 109 mmHg (83-108); Potassium 3.9 mMOL/L (3.5-5.1); Sodium 135 mMOL/L (136-145); pH 7.28 (7.35-7.45)
[2025-03-02 15:27] LABS: Hematocrit 34.2 % (39.0-52.0); Hemoglobin 11.6 g/dL (13.0-18.0); Platelet Count 240 10^3/uL (130-400)
[2025-03-02] MEDS: [UNRECOGNIZED DRUG - OTHER] 60 MG S (15:27)
[2025-03-02] MEDS: NSS 500 IV (15:27)
[2025-03-02] MEDS: PACERONE PO (15:28)
[2025-03-02] MEDS: TYLENOL PO (15:28)
[2025-03-02] MEDS: NEURONTIN PO (15:28)
[2025-03-02 15:36] LABS: INR 1.26; PT 16.1 Sec (11.4-14.6)
[2025-03-02 15:37] LABS: APTT 36.3 Sec (23.4-35.0)
--- NOTE | 2025-03-02 15:38 | W.PN.UPDATE ---
Update Note
Progress Note Update
Crystalloid: 3100
U.O.: 550
UF: 1200
Blood: None
Wires: V
Inotropes: None
Pressors: levophed
Sedatives: precedex
NEURO: sedated on precedex, pupils +2mm B/L
RESP: #8OT> 14/500/40/5 Lungs clear B/L. 2 mediastinal (10cc on arrival) and R/L pleural (5cc on arrival) chest tubes to -20cm suction. Sanguineous drainage
CV: RRR +S1, S2, no S3, no rub, no murmur. Dermabond to median sternotomy. RIJ w/Slicc
ABD: round, soft, no BS
EXT: no edema, +2/4 DP pulses B/L, no femoral bruit, RLE LEANDRA wrap intact; left radial A-line intact
: Salazar with clear yellow urine
A/P: POD #0 s/p CABG x4/ LAAC
YASIR: EF 40 to 45%
- wean and extubate
- Monitor CT and urine output
- Follow up labs and CXR
- Wean levophed for maps >65/SBP goal 90-140
- Will start ASA tonight
- EKG pending and will send to cards
- Cards consulted
# acute surgical blood loss anemia-expected
- trend CBC
# Hyperlipidemia
- resume statin when tolerating PO
#hypothyroidism
- Thyroid Pork 120mg po daily (home med)
[2025-03-02 15:39] LABS: Blood Urea Nitrogen 16 mg/dl (9-20); Estimated Creatinine Clearance 103 ml/min; Glucose 156 mg/dl (70-99); Magnesium 2.7 mg/dl (1.6-2.3)
[2025-03-02] MEDS: SODIUM BICARBONATE 50 MEQ IV (15:44)
[2025-03-02] MEDS: CALCIUM GLUCONATE 100 IV ×2 (15:44→21:15)
--- NOTE | 2025-03-02 15:52 | W.PN.CARDCBS ---
Addendum entered and electronically signed by Bill Oleary MD 03/02/25 16:25:
I saw and examined the patient.
The PULLING MACHINE OPERATOR or PA's note was reviewed and I agree with the note.
Comment: Intubated and sedated
Neck: Supple, no JVD, HJR, carotids +2 B/L, no bruits bilaterally.
Heart: Non displaced PMI, RRR, no murmurs, No S3, S4, no rubs.
Lungs: Scattered rhonchi
Sternal dressings noted
Extremities: No clubbing, cyanosis or edema bilaterally.
Neuro: Intubated and sedate
He is seen immediately postop. He remained stable on low-dose Levophed. He remains in sinus rhythm. Continue CT surgical care. Patient was also seen preop and discussed in detail with family as well as CT surgery. Total visit time 51 minutes
including pre and postop.
Original Note:
Today's Communication / Plan
-
continue post op care
Impression / Plan
-
PCP: Dr. Sosa
Card: Dr. Winchester
Impression:
Chest pain
Abnormal stress echo 03/01/25
NSTEMI, peak trop 0.1
MV CAD by cath 03/01 s/p CABG x4/ARTURO clip 03/02/25
h/o Hodgkin's lymphoma treated with chest radiation and Adriamycin 1989
HTN
Hyperlipidemia
Stress echo 03/01/25: Patient completed 7 min Cheng protocol for 87% MPHR, new mid anteroseptal, apical septal hypokinesis and reduction of left ventricular systolic function post exercise, LVEF at rest visually estimated 50-55% and post exercise
45-50%, exertional limiting chest pain during study that resolved with rest
ECHO 02/28/25: EF 40%, global hypokinesis, stage I diastolic dysfunction, mild MAC, mild MR, aortic sclerosis, trace TR, PAP 20 to 25 mmHg
Plan:
-s/p CABG x4, ARTURO clip 03/02/25
-EF by IntraOp YASIR 40 to 45%
-intubated, sedated
-EKG SR with 1st degree av block
-currently on levo @6, weaning as BPs stable
-Hemoglobin 11.6, follow. Will need DAPT as ruled in for NSTEMI
-Patient also with h/o chest radiation and Adriamycin for Hodgkin's lymphoma in 1989.
-was on olmesartan/HCTZ prior to admission
-d/w nursing, CT surgery PA
Progress Note - Desktop Manager
Subjective
Date of Service: March 02, 2025
intubated, sedated
Objective
Labs:
03/02/25 15:14
Labs
Hgb 11.6 g/dL (13.0-18.0) L 03/02/25 15:14
Hct 34.2 % (39.0-52.0) L 03/02/25 15:14
Plt Count 240 10^3/uL (130-400) D 03/02/25 15:14
PT 16.1 Sec (11.4-14.6) H 03/02/25 15:14
INR 1.26 03/02/25 15:14
APTT 36.3 Sec (23.4-35.0) H 03/02/25 15:14
Sodium 140 mmol/L (135-145) 03/02/25 03:14
Potassium 4.4 mmol/L (3.5-5.1) 03/02/25 03:14
BUN 16 mg/dl (9-20) 03/02/25 15:14
Creatinine 0.9 mg/dL (0.7-1.3) 03/02/25 15:14
Glucose 156 mg/dl (70-99) H 03/02/25 15:14
Troponins
03/01/25 03/01/25 03/01/25
11:11 16:28 22:49
Troponin I 0.026 0.055 H* D 0.071 H* D
03/02/25 03/02/25
03:14 09:12
Troponin I 0.106 H* D 0.087 H*
Vital Signs and I&O:
Vital Signs
Temp Pulse Resp BP Pulse Ox
97.8 F 90 16 133/101 97
03/02/25 15:30 03/02/25 15:30 03/02/25 15:30 03/02/25 09:20 03/02/25 15:30
Vital Signs
Temp Pulse Resp BP Pulse Ox
97.8 F 90 16 133/101 97
03/02/25 15:30 03/02/25 15:30 03/02/25 15:30 03/02/25 09:20 03/02/25 15:30
Intake & Output
02/28/25 03/01/25 03/02/25 03/03/25
07:59 07:59 07:59 07:59
Intake Total 1408 / 1408
Output Total 900 / 900
Balance 508 / 508
Physical Exam
Physical Exam
GEN: No distress, intubated, sedated
HEENT: supple, mmm
LUNGS: CTA B/L, no wheezes/rales
CV: Reg, S1/S2, no murmur
EXT: No cyanosis, clubbing, edema
NEURO: sedated
SKIN: Warm, pink, dry. No rash. sternotomy incision c/d/i. CTs in place
--- NOTE | 2025-03-02 16:04 | CON.INTV ---
Consultation
Consultation Request
Date/Time Consultation Requested: 03/02/25
Date/Time Consultation Performed: 03/02/25
Reason for Consultation: Critical care
Medical History
-
History of Present Illness:
History obtained from chart as patient is currently intubated, sedated. Patient is a 50-year-old male who presented to [place] emergency room/02/20 after abnormal stress test. Patient was noted to have a EF of 55% preexercise, 45% postexercise
with positive ischemia per EKG and chest pain. Per ED records, patient has been having exertional chest discomfort over the past year. Patient was given aspirin, seen by cardiology. Patient underwent catheterization which showed triple-vessel
disease. He is now status post CAB x 4 on 03/02/25, left atrial clip. We are asked to help from critical care standpoint. Presently patient is on 6 mcg of norepinephrine. No blood products. Chest tube within minimal drainage. Remains on
volume-cycled ventilation, adequate airway pressures, FiO2 60%
.
PMH: Hypothyroidism, hyperlipidemia/hypertension, history of Hodgkin's lymphoma with chest radiation and Adriamycin 1989
Past Medical History
Past Medical History: None (See above)
Past Surgical History: None ( see above)
Social History
Tobacco: Non-smoker
Alcohol: Occasional
Drug: None
Family History
Family History: Other (Father with atrial fibrillation)
Allergies / Home Medications
Allergies
Allergy/AdvReac Type Severity Reaction Status Date / Time
bee venom protein (honey bee) Allergy Anaphylaxis Verified 03/01/25 10:33
Home Medications
�Medication �Instructions �Recorded �Confirmed �Last Taken �Type
amitriptyline 50 mg tablet 50 mg PO HS Mental Health/Anxiety 03/01/25 03/01/25 02/28/25 History
finasteride 1 mg tablet 1 mg PO HS Urinary Issue 03/01/25 03/01/25 02/28/25 History
olmesartan 20 1 tab PO HS Blood Pressure 03/01/25 03/01/25 02/28/25 History
mg-hydrochlorothiazide 12.5 mg
tablet
omeprazole magnesium 20 mg 20 mg PO DAILY Gastrointestinal 03/01/25 03/01/25 Unknown History
tablet,delayed release (Prilosec Issue
OTC)
rosuvastatin 10 mg tablet 10 mg PO HS High Cholesterol 03/01/25 03/01/25 02/28/25 History
tadalafil 20 mg tablet 20 mg PO DAILYPRN PRN ed 03/01/25 03/01/25 Unknown History
thyroid (pork) 120 mg tablet (SAMPLE MAKER 120 mg PO DAILY Thyroid 03/01/25 03/01/25 02/28/25 History
Thyroid)
Review of Systems
-
Unable to Obtain full review of systems at this time due to: Patient Intubation
Vitals / Labs / Diagnostic Testing
Vital Signs
Temp Pulse Resp BP Pulse Ox
97.8 F 90 16 133/101 97
03/02/25 15:30 03/02/25 15:30 03/02/25 15:30 03/02/25 09:20 03/02/25 15:30
Lab Data
03/02/25 15:14
Laboratory Results
03/01/25 03/02/25 03/02/25
16:18 03:14 03:14
PT Cancelled 13.3
INR Cancelled
APTT 38.0 H
pH
pCO2
pO2
HCO3
O2 Delivery Level
03/02/25 03/02/25 03/02/25
03:14 09:12 15:14
PT 16.1 H
INR 0.96 1.26
APTT 55.6 H 57.0 H 36.3 H
pH 7.28 L
pCO2 47
pO2 109 H
HCO3 22.1
O2 Delivery Level
Diagnostic Testing:
Physical Exam
-
HEENT: Normocephalic and Other (Right IJ, A-line, chest tube)
Cardiovascular: S1/S2, Regular Rhythm, Murmur (n), Rub (n), Peripheral Edema (n) and Other (Right lower extremity bandage)
Respiratory: Clear, Wheeze (n), Rales (n), Rhonchi (n), Non-Labored Respirations and Other (ET tube)
GI: Soft and Non Distended
Neurology: Other (Sedated)
Skin: Other (No rash, scattered tattoos)
General: Comfortable
Assessment
-
50-year-old male with history of Hodgkin's lymphoma with chest radiation and Adriamycin 1989, presents with abnormal stress test. Cardiac catheterization revealed multivessel disease. Patient is status post CAB x 4 with left atrial clip.
Currently on 6 mcg of norepinephrine but doing well, did not require blood products. We are asked to help from critical care standpoint 03/02/2025
S/p CAB x 4, 03/02/25
ARTURO clip
Postoperative YASIR with mild LV dysfunction, mild regional wall motion abnormalities, normal RV size and function, improved mild MR
Multivessel coronary disease
Stress echo with post stress EF 45%
Postoperative anemia
Conditions present prior to admission
Hypertension/hyperlipidemia
History of Hodgkin's disease with chest radiation/Adriamycin in 1989
Few scattered pulmonary nodules (my review)
Per CT chest 03/02/25 (R: Image #111, 128 patchy groundglass, 143 patchy groundglass, 164 groundglass, 256 L: Image #60, 198, 206, 212, 221)
Suspect right middle lobe and right lower lobe patchy bronchiolitis
Moderate hiatal hernia
Plan/recommendations
Patient is critically ill but stable. Presently on 6 mcg of norepinephrine being weaned
Postoperative chest x-ray with mild atelectasis, heart failure per my review
Postoperative EKG sinus rhythm
CT chest without parenchymal disease
However there are scattered small nodules bilaterally per my review
Moving forward
Continue with management per CT surgery
Wean pressors as needed
Chest tube output minimal, follow hemoglobin
Continue with ventilator weaning per CT surgery protocol, anticipate extubation later today
Follow blood sugars
Per records, no history of smoking
Would like to confirm once awake
Given CT chest findings, would recommend, consider CT chest in 1 year
This will be an ongoing discussion
Reviewed with critical care nursing
TCCT 31 min
[2025-03-02 16:08] LABS: Glucose - Point of Care 147 mg/dl (70-99)
[2025-03-02] MEDS: KCL 50 IV ×2 (16:15→18:21)
--- NOTE | 2025-03-02 16:15 | PTCARENOTE ---
Pt arrived from [facility] to CVICU at 1515. Pt intubated and sedated on Precedex 0.5mcg/kg/hr. Pt SR with first degree AV block and prolonged QT. HR 93. BP 114/67 MAP 82. CVP 8. Pt out of CVOR on Levo at 8mcg/min, now down to 6mcg/min. Epicardial V wire
in place set to VVI 50/10/2, wire disconnected and tied around box. Temp 97.7. Intubated with #8 ET tube at 23cm on right lip. Oral care completed. Vent set to SIMV 40% FiO2, TV 500, RR 16, PEEP 5, pressure support 5. Pulse oximetry 99%. Mediastinal
chest tubes x2 and left/right pleural chest tubes in place to -20 suction, no sign of air leak or crepitus. Bowel sounds hypoactive. Pt remains on insulin gtt per glycemic protocol. Salazar catheter in place, Salazar care completed. Midsternal incision
approximated and LORI. Right groin puncture approximated and MASH TUB COOKER OPERATOR. Right leg incision with LEANDRA wrap overlay in place. Right radial site from previous cath intact. Bilateral pedal and radial pulses palpable. Right IJ cordis and SLIC in place. Left
radial Ladonna intact. Post-op EKG and xray obtained. Labs collected and reviewed, calcium and potassium being replaced. 1amp Bicarb given.
[2025-03-02 16:26] LABS: B.E. -2.2 mmol/L; HCO3 23.2 mmol/L (21-28); Ionized Calcium 1.15 mMOL/L (1.15-1.33); O2 Saturation % 99.5 % (94-98); PCO2 41 mmHg (35-48); PO2 138 mmHg (83-108); Potassium 3.9 mMOL/L (3.5-5.1); Sodium 137 mMOL/L (136-145); pH 7.36 (7.35-7.45)
[2025-03-02] MEDS: ZOFRAN 4 MG IV (16:50)
[2025-03-02 17:08] LABS: Glucose - Point of Care 128 mg/dl (70-99)
[2025-03-02 17:39] LABS: B.E. - POC -0.3 mmol/L; Blood Urea Nitrogen - POC 15 mg/dl (3-120); Chloride - POC 109 mmol/L (96-111); Glucose - POC 146 mg/dl (70-99); HCO3 - POC 26 mmol/L (21-28); Hematocrit - POC 36 % PCV (42-52); Hemodilution- POC Yes; Hemoglobin Calculated - POC 12.1; Ionized Calcium - POC 1.25 mmol/L (1.15-1.33); Lactate - POC 2.26 mmol/L (0.36-0.75); O2 Saturation %Calculated-POC 98.6 % (94-98); PCO2 - POC 50 mmHg (35-48); PO2 - POC 127 mmHg (83-108); Potassium - POC 4.9 mmol/L (3.5-5.1); Sodium - POC 141 mmol/L (136-145); Specimen Type - POC Arterial; pH - POC 7.33 (7.35-7.45)
--- NOTE | 2025-03-02 17:45 | PTCARENOTE ---
Precedex weaning down, pt awake and following commands. Zofran administered for nausea. CPAP trial initiated at 1650. Pt tolerated well. ABG collected and reviewed with CT TERESITA, [employer]. Pt extubated at 1740 to 6L nasal cannula. Pulse oximetry 99%. Pt
able to state name and . Pt remains drowsy at this time. Achieved 250 with IS, continue use encouraged.
[2025-03-02 18:18] LABS: Glucose - Point of Care 123 mg/dl (70-99)
[2025-03-02] MEDS: DILAUDID 0.25 MG IV ×2 (19:13→22:18)
[2025-03-02 19:50] LABS: Hematocrit 35.5 % (39.0-52.0); Hemoglobin 12.4 g/dL (13.0-18.0); Platelet Count 268 10^3/uL (130-400)
[2025-03-02] MEDS: SENOKOT-S PO (19:52)
[2025-03-02] MEDS: LR 250 ML IV ×2 (20:00→23:40)
--- NOTE | 2025-03-02 20:30 | PTCARENOTE ---
Patient received resting in bed. Patient family member at bedside. Patient A+A+Ox3. No neurological deficits noted. No c/o headache, dizziness or lightheadedness. O2 at 6L via NC. SpO2 99%. Four chest tubes - Mediastinal x2 and Right and Left
Pleural - Intact and patent - 5-20 ml red drainage - No air leak. Chest tube dressing intact. Sinus rhythm with occasional PVC. Heart rate 90's. Blood pressure 123/75 (89). V-Wire 50/10/2.0. Patient with no c/o chest pain, pressure or
discomfort. Abdomen soft, round, nontender. Hypoactive bowel sounds. No BM. No c/o nausea. No vomiting. Salazar catheter - Temperature sensing - light mandy, yellow urine - Outputs as documented. Trace generalized edema. Positive, palpable
pulses. Right I.J. Cordis with venous sheath/slick catheter. Left radial arterial line. A-Line and CVP to pressure bag/saline flush. CVP 11. Flush without difficulty - Zeroed and calibrated. Sternal incision intact - Surgical adhesive. Right
groin puncture site intact. Right knee incision - Surgical adhesive - Intact - Coban Americo Wrap. Patient given IV Dilaudid 0.25 mg for pain management. IVF Bolus 250ml LR. Assessment as documented.
[2025-03-02] MEDS: LOW STRENGTH ASPIRIN 81 MG PO (20:33)
[2025-03-02] MEDS: ANCEF 5 IV (20:33)
[2025-03-02] MEDS: ROXICODONE 5 MG PO (20:40)
[2025-03-02] MEDS: LEVOPHED 250 IV (20:40)
[2025-03-02 21:00] LABS: Ionized Calcium 1.11 mMOL/L (1.15-1.33)
[2025-03-02 21:18] LABS: Potassium 4.7 mmol/L (3.5-5.1)
[2025-03-02] MEDS: NEURONTIN 100 MG PO (21:57)
[2025-03-02] MEDS: ELAVIL 50 MG PO (21:57)
[2025-03-02] MEDS: PACERONE 200 MG PO (21:57)
[2025-03-02] MEDS: TYLENOL 1000 MG PO (21:57)
--- NOTE | 2025-03-02 22:00 | PTCARENOTE ---
Roxicodone 5 mg PO for pain management. Lab work ordered, collected and sent. Ionized calcium 1.11 - Calcium Gluconate 2,000mg/100ml IV administered. No further changes from previous assessment.
[2025-03-02 22:03] LABS: Glucose - Point of Care 148 mg/dl (70-99)
[2025-03-02 22:03] LABS: Glucose - Point of Care 131 mg/dl (70-99)
[2025-03-02 22:29] LABS: Glucose - Point of Care 119 mg/dl (70-99)
[2025-03-02] MEDS: DILAUDID 0.5 MG IV (22:49)
[2025-03-02] MEDS: CARDENE 200 IV (23:00)
[2025-03-03] VITALS (18 sets, daily range): BP systolic 101–148; BP diastolic 64–96; PULSE 106; O2SAT 92–94; BMI 30.1
[2025-03-03 00:36] LABS: Glucose - Point of Care 120 mg/dl (70-99)
[2025-03-03] MEDS: ZOFRAN 4 MG IV (01:10)
[2025-03-03 01:24] LABS: Glucose - Point of Care 122 mg/dl (70-99)
[2025-03-03] MEDS: ROXICODONE 5 MG PO ×4 (01:27→20:58)
--- NOTE | 2025-03-03 01:30 | PTCARENOTE ---
Patient A+A+Ox3. No neurological deficits noted. Resting in bed. Second LR 250 ml Bolus given per PA order. Levophed gtt off. On and Off Cardene gtt. Zofran 4mg IV for c/o nausea - Positive relief provided. CVP 10. Assessment/Interventions
as documented.
[2025-03-03 02:11] LABS: Glucose - Point of Care 114 mg/dl (70-99)
[2025-03-03] MEDS: DILAUDID 0.25 MG IV (02:19)
[2025-03-03] MEDS: LR 250 ML IV (02:50)
[2025-03-03 03:21] LABS: Glucose - Point of Care 106 mg/dl (70-99)
[2025-03-03] MEDS: NOVOLIN R INSULIN INFUSION 100 IV (03:25)
[2025-03-03 03:55] LABS: Hematocrit 34.1 % (39.0-52.0); Hemoglobin 11.7 g/dL (13.0-18.0); Mean Corp Hgb Conc. 34.3 g/dL (33.0-37.0); Mean Corpuscular Hgb 27.7 pg (27.0-31.0); Mean Corpuscular Volume 80.6 fL (80.0-94.0); Mean Platelet Volume 9.6 fL (7.4-10.4); Platelet Count 241 10^3/uL (130-400); Red Blood Cell Count 4.23 10^6/uL (4.70-6.10); Red Cell Dist. Width 13.2 % (11.5-14.5); White Blood Cell Count 14.6 10^3/uL (4.8-10.8)
[2025-03-03] MEDS: ANCEF 5 IV ×2 (04:07→12:51)
[2025-03-03] MEDS: DILAUDID 0.5 MG IV (04:07)
[2025-03-03 04:16] LABS: Blood Urea Nitrogen 14 mg/dl (9-20); Calcium 8.9 mg/dl (8.4-10.2); Carbon Dioxide 26 mmol/L (22-30); Chloride 108 mmol/L (98-107); Estimated Creatinine Clearance 115 ml/min; Glucose 115 mg/dl (70-99); Magnesium 1.9 mg/dl (1.6-2.3); Potassium 4.2 mmol/L (3.5-5.1); Sodium 141 mmol/L (135-145); eGFR > 60.00
[2025-03-03 04:19] LABS: Glucose - Point of Care 112 mg/dl (70-99)
[2025-03-03 06:01] LABS: Glucose - Point of Care 109 mg/dl (70-99)
[2025-03-03] MEDS: NON-FORMULARY ITEM 120 MG PO (06:17)
[2025-03-03] MEDS: TYLENOL 1000 MG PO ×3 (06:17→22:33)
--- NOTE | 2025-03-03 06:30 | PTCARENOTE ---
Patient A+A+Ox3. No neurological deficits noted. Patient given bath and linens changed. Chest tube dressing changed. AM labs collected and sent.
EKG completed. Portable CXR completed. Patient de-lined. OOB to chair. Standing scale weight 95.1 kg. Patient with no c/o headache, dizziness or lightheadedness. Assessment/Interventions as documented.
[2025-03-03] MEDS: LOPRESSOR 12.5 MG PO ×2 (07:04→09:50)
--- NOTE | 2025-03-03 07:15 | W.PN.CT ---
Today's Communication / Plan
-
-pod #1
-no issues overnight
-sbp 90-[address] Kent
-got 250 Normosol, 500 LR
-drips: insulin, Cardene 2.5-5 on and off
-CT outputs: 2 meds 235/300, 2 pleur 95/195 in 12/24 hrs
-autodiuresed (UO 1190/1565 in 12/24 hrs)
-deline
-d/c insulin
-d/c Salazar
-current meds (ASA, Plavix, Crestor, Lopressor, Amio, Protonix, Elavil). Consider starting Coreg or Toprol for CM (EF 40-45%)
-follow Qt on Amio and Elavil
-encourage Is, OOB
Assessment / Plan
-
- mv-CAD with prior chest irradiation - s/p CABG x4 (In situ ABREU to LAD, LIZANDRO T of ABERU to Ramus to OM, Ao to RSVG to RPDA); LAAE (35mm Clip) by Dr. Kent on 03/02/25, pod #1
- Intraop YASIR: LVEF preop was approximately 40 to 45% with regional wall motion abnormalities mostly to the anterior apical apical and lateral uribe. Following surgery, his EF remained the same at approximately 45%, the apical and lateral uribe
remain the same as preoperatively, mild hypokinesis, the septal region did improve and appeared to be more contractile.
- Unstable Angina
- Multi Vessel CAD
- Hodgkin's Lymphoma with prior Mantle Radiation and Adriamycin at age 14
- HTN
- HLD
- Ischemic Cardiomyopathy, LVEF 40-45%, with Regional Wall Motion Abn
- Mohs procedure face and shoulder
- Acute postop blood loss anemia - stable, no transfusion
- Acute postop atelectasis
- Acute postop hypovolemia with subsequent hypervolemia
Discussed patient care with: Nursing and Care Team
Subjective
-
Date of Service: March 03, 2025
Objective Data
-
PT 16.1 Sec (11.4-14.6) H 03/02/25 15:14
INR 1.26 03/02/25 15:14
APTT 36.3 Sec (23.4-35.0) H 03/02/25 15:14
Vital Signs
Vital Signs
Temp Pulse Resp BP Pulse Ox
98.7 F 102 23 142/75 94
03/02/25 23:00 03/03/25 00:15 03/03/25 00:15 03/03/25 00:00 03/03/25 00:15
CT Intake/Output/Weight
03/02/25 03/02/25 03/03/25
06:59 18:59 06:59
Intake Total 580 / 1408 589.66 / 1194.26 604.6 / 1194.26
Output Total 600 / 900 540 / 1000 460 / 1000
Balance -20 / 508 49.66 / 194.26 144.6 / 194.26
SaO2: 94
Physical Exam
-
General: Awake and AOx3
Cardiovascular: Regular rate & rhythm, No Murmurs and Rub
Respiratory: Decreased Breath Sounds
Sternum: Stable
Incision: Clean, Dry and Intact
Extremities: No Edema (2+ DPs b/l)
Abdomen: soft, nontender, nondistended, +decreased bowel sounds
Data Reviewed
-
Lab Results: Results Reviewed
Medications: Active Meds Reviewed
Chest X-Ray: Report Reviewed and Image Reviewed
ECG: Report Reviewed and Image Reviewed
[2025-03-03] MEDS: LOW STRENGTH ASPIRIN 81 MG PO (08:17)
[2025-03-03] MEDS: NEURONTIN 100 MG PO ×3 (08:17→22:32)
[2025-03-03] MEDS: MAGNESIUM OXIDE 500 MG PO ×2 (08:17→20:53)
[2025-03-03] MEDS: PACERONE 200 MG PO ×3 (08:18→22:32)
[2025-03-03] MEDS: LIDOCAINE 4% PATCH 1 PATCH TOPICAL (08:18)
[2025-03-03] MEDS: SENOKOT-S 1 TABLET PO ×2 (08:18→20:53)
[2025-03-03] MEDS: PROTONIX 40 MG PO (08:18)
[2025-03-03] MEDS: PLAVIX 75 MG PO (08:18)
[2025-03-03] MEDS: CRESTOR 20 MG PO (08:18)
[2025-03-03] MEDS: BACTROBAN 2% OINTMENT 1 APPLIC NASAL ×2 (08:19→20:52)
[2025-03-03 08:26] LABS: Glucose - Point of Care 115 mg/dl (70-99)
--- NOTE | 2025-03-03 08:59 | W.PN.CARDCBS ---
Today's Communication / Plan
-
Stable cardiology status status post CABG
Eventual Plavix with non-STEMI
Impression / Plan
-
PCP: Dr. Sosa
Card: Dr. Winchester
Impression:
Chest pain
Abnormal stress echo 03/01/25
NSTEMI, peak trop 0.1
MV CAD by cath 03/01 s/p CABG x4/ARTURO clip 03/02/25
h/o Hodgkin's lymphoma treated with chest radiation and Adriamycin 1989
HTN
Hyperlipidemia
Stress echo 03/01/25: Patient completed 7 min Cheng protocol for 87% MPHR, new mid anteroseptal, apical septal hypokinesis and reduction of left ventricular systolic function post exercise, LVEF at rest visually estimated 50-55% and post exercise
45-50%, exertional limiting chest pain during study that resolved with rest
ECHO 02/28/25: EF 40%, global hypokinesis, stage I diastolic dysfunction, mild MAC, mild MR, aortic sclerosis, trace TR, PAP 20 to 25 mmHg
Plan:
Stable cardiology status status post CABG on 03/02
Remains in sinus rhythm
Discussed with nursing and CT surgery
Will need DAPT as ruled in for NSTEMI
-was on olmesartan/HCTZ prior to admission
-d/w nursing, CT surgery
Progress Note - Flight Hostess
Subjective
Date of Service: March 03, 2025
No chest pain or shortness of breath
Objective
Labs:
03/03/25 03:36
03/03/25 03:36
Labs
Hgb 11.7 g/dL (13.0-18.0) L 03/03/25 03:36
Hct 34.1 % (39.0-52.0) L 03/03/25 03:36
Plt Count 241 10^3/uL (130-400) 03/03/25 03:36
PT 16.1 Sec (11.4-14.6) H 03/02/25 15:14
INR 1.26 03/02/25 15:14
APTT 36.3 Sec (23.4-35.0) H 03/02/25 15:14
Sodium 141 mmol/L (135-145) 03/03/25 03:36
Potassium 4.2 mmol/L (3.5-5.1) 03/03/25 03:36
BUN 14 mg/dl (9-20) 03/03/25 03:36
Creatinine 0.8 mg/dL (0.7-1.3) 03/03/25 03:36
Glucose 115 mg/dl (70-99) H 03/03/25 03:36
Troponins
03/01/25 03/01/25 03/01/25
11:11 16:28 22:49
Troponin I 0.026 0.055 H* D 0.071 H* D
03/02/25 03/02/25
03:14 09:12
Troponin I 0.106 H* D 0.087 H*
Vital Signs and I&O:
Vital Signs
Temp Pulse Resp BP Pulse Ox
98.2 F 109 16 125/83 93
03/03/25 08:00 03/03/25 08:13 03/03/25 08:00 03/03/25 08:13 03/03/25 08:00
Vital Signs
Temp Pulse Resp BP Pulse Ox
98.2 F 109 16 125/83 93
03/03/25 08:00 03/03/25 08:13 03/03/25 08:00 03/03/25 08:13 03/03/25 08:00
Intake & Output
03/01/25 03/02/25 03/03/25 03/04/25
06:59 06:59 06:59 06:59
Intake Total 1408 / 1408 5.26 / 2114. 113 / 113
Output Total 900 / 900 2060 / 2060 80 / 80
Balance 508 / 508 55.26 / 55.26 33 / 33
Physical Exam
Physical Exam
General: Well developed, well nourished in NAD.
Neck: Supple, no JVD, HJR, carotids +2 B/L, no bruits bilaterally.
Heart: Non displaced PMI, RRR, no murmurs, No S3, S4, no rubs.
Lungs: Scattered rhonchi
Sternal dressings noted
Extremities: No clubbing, cyanosis or edema bilaterally.
Neuro: Grossly nonfocal, awake, alert and oriented x3.
--- NOTE | 2025-03-03 10:32 | PTCARENOTE ---
assumed care of pt from previous shift RN, sinus tachycardia on tele w HR 100's, bp 129/88. + peripheral pulses, no edema. Lungs diminished, pox 93-95% on RA, coughing and deep breathing encouraged. +bs, toleating PO intake. Pt is DTV. CTs w minimal
amount of drainage. Pacing wire insulated. Pt tolerated working w cardiac rehab. Plan of care reviewed w the pt and questions encouraged.
[2025-03-03 10:42] LABS: Glucose - Point of Care 102 mg/dl (70-99)
[2025-03-03 11:55] LABS: Glucose - Point of Care 99 mg/dl (70-99)
[2025-03-03] MEDS: FERRLECIT 110 MG IV (12:49)
--- NOTE | 2025-03-03 13:02 | PTCARENOTE ---
Pleural CTs removed without incident.
[2025-03-03] MEDS: TORADOL 15 MG IV ×2 (13:53→22:33)
[2025-03-03] MEDS: LASIX 40 MG IV (13:53)
[2025-03-03] MEDS: FLEXBUMIN 50 IV ×2 (13:54→20:54)
[2025-03-03 14:03] LABS: Glucose - Point of Care 130 mg/dl (70-99)
--- NOTE | 2025-03-03 15:00 | W.PN.ANS.POP ---
Anesthesia Post Operative
- Anesthesia Post Op Note
Vital Signs Stable-See Nursing Note: Yes
Airway Patent: Yes
Adequate Pain Control: Yes
Change in Mental Status: No
Current Postoperative Nausea & Vomiting: No
Anesthesia Complications: No
General Anesthetic Recall: No
Unplanned Admission: No
Post Op Hydration Adequate: Yes
[2025-03-03] MEDS: NSS IV (15:31)
--- NOTE | 2025-03-03 17:23 | PTCARENOTE ---
pt sitting OOB in chair, medicated for pain, minimal output from CTs.
[2025-03-03] MEDS: LOPRESSOR 25 MG PO (20:53)
--- NOTE | 2025-03-03 21:00 | PTCARENOTE ---
Patient received resting in bed watching television. Patient A+A+Ox3. No neurological deficits noted. No c/o headache, dizziness or lightheadedness.
O2 at 2L via NC. SpO2 95%. Occasional nonproductive cough. Sternal precautions. Two chest tubes - Mediastinal x2 - Intact and patent - 20 ml serosanguineous drainage - No air leak - Dressing intact. Sinus Rhythm with rare PVC. Heart rate 90's.
Blood pressure 113/64 (76). V-Wire insulated. Patient with no c/o chest pain, pressure or discomfort. Normoactive bowel sounds. No BM. No c/o nausea. No vomiting. Voiding without difficulty. Positive, palpable pulses. Sternal incision
intact - Surgical adhesive - Open to air. Right groin puncture site intact. Right knee incision intact - Surgical adhesive - Open to air. Right I.J. Cordis. Assessment as documented.
[2025-03-03] MEDS: ELAVIL 50 MG PO (22:32)
[2025-03-03] MEDS: MUCINEX 600 MG PO (22:32)
[2025-03-04] VITALS (20 sets, daily range): BP systolic 90–135; BP diastolic 54–77; BMI 30.1
--- NOTE | 2025-03-04 00:30 | PTCARENOTE ---
Flexbumin 25% IV administered without difficulty. Roxicodone 5 mg PO and Toradol 15 mg IV given for pain management. Patient now sleeping without difficulty. Assessment as documented.
--- NOTE | 2025-03-04 00:51 | W.PN.CT ---
Today's Communication / Plan
-
-pod #2
-no issues overnight
-BB restarted, tolerated
-CT outputs: 2 meds 60/210 in 12/24 hrs, Pl DCd
-UO 250/1500 in 12/24 hrs
-current meds (ASA, Plavix, Crestor, Lopressor, Amio, Protonix, Elavil). Consider starting Coreg or Toprol for CM (EF 40-45%)
-follow Qt on Amio and Elavil
-encourage Is, OOB
Assessment / Plan
-
- mv-CAD with prior chest irradiation - s/p CABG x4 (In situ ABREU to LAD, LIZANDRO T of ABREU to Ramus to OM, Ao to RSVG to RPDA); LAAE (35mm Clip) by Dr. Kent on 03/02/25, pod #2
- Intraop YASIR: LVEF preop was approximately 40 to 45% with regional wall motion abnormalities mostly to the anterior apical apical and lateral uribe. Following surgery, his EF remained the same at approximately 45%, the apical and lateral uribe
remain the same as preoperatively, mild hypokinesis, the septal region did improve and appeared to be more contractile.
- Unstable Angina
- Multi Vessel CAD
- Hodgkin's Lymphoma with prior Mantle Radiation and Adriamycin at age 14
- HTN
- HLD
- Ischemic Cardiomyopathy, LVEF 40-45%, with Regional Wall Motion Abn
- Mohs procedure face and shoulder
- Acute postop blood loss anemia - stable, no transfusion
- Acute postop atelectasis
- Acute postop hypovolemia with subsequent hypervolemia
Subjective
-
Date of Service: March 04, 2025
Objective Data
-
PT 16.1 Sec (11.4-14.6) H 03/02/25 15:14
INR 1.26 03/02/25 15:14
APTT 36.3 Sec (23.4-35.0) H 03/02/25 15:14
Vital Signs
Vital Signs
Temp Pulse Resp BP Pulse Ox
98.7 F 86 18 101/69 94
03/03/25 22:25 03/04/25 00:00 03/03/25 22:25 03/03/25 22:32 03/03/25 22:25
CT Intake/Output/Weight
03/03/25 03/03/25 03/04/25
06:59 18:59 06:59
Intake Total 1525.6 / 2115.26 384.6 / 734.6 350 / 734.6
Output Total 1520 / 0 1460 / 1740 280 / 1740
Balance 5.6 / 55.26 -1075.4 / -1005.4 70 / -1005.4
SaO2: 94
Physical Exam
-
General: Awake and Oriented
Cardiovascular: Regular rate & rhythm, No Murmurs and No Rub
Respiratory: Clear and Equal
Sternum: Stable
Incision: Clean, Dry and Intact
Extremities: No Edema and No Erythema
Data Reviewed
-
Lab Results: Results Reviewed
Medications: Active Meds Reviewed
Chest X-Ray: Report Reviewed
ECG: Report Reviewed
[2025-03-04 04:05] LABS: Hematocrit 29.2 % (39.0-52.0); Hemoglobin 9.9 g/dL (13.0-18.0); Mean Corp Hgb Conc. 33.9 g/dL (33.0-37.0); Mean Corpuscular Hgb 28.5 pg (27.0-31.0); Mean Corpuscular Volume 84.1 fL (80.0-94.0); Mean Platelet Volume 9.9 fL (7.4-10.4); Platelet Count 190 10^3/uL (130-400); Red Blood Cell Count 3.47 10^6/uL (4.70-6.10); Red Cell Dist. Width 13.5 % (11.5-14.5); White Blood Cell Count 10.3 10^3/uL (4.8-10.8)
[2025-03-04] MEDS: ROXICODONE 5 MG PO ×3 (04:16→21:58)
[2025-03-04 04:22] LABS: Blood Urea Nitrogen 21 mg/dl (9-20); Calcium 8.7 mg/dl (8.4-10.2); Carbon Dioxide 31 mmol/L (22-30); Chloride 104 mmol/L (98-107); Estimated Creatinine Clearance 103 ml/min; Glucose 108 mg/dl (70-99); Magnesium 2.3 mg/dl (1.6-2.3); Potassium 4.5 mmol/L (3.5-5.1); Sodium 140 mmol/L (135-145); eGFR > 60.00
[2025-03-04] MEDS: FLEXBUMIN 50 IV (05:28)
[2025-03-04] MEDS: TYLENOL 1000 MG PO ×3 (05:29→21:57)
[2025-03-04] MEDS: TORADOL 15 MG IV ×2 (05:29→18:58)
[2025-03-04] MEDS: NON-FORMULARY ITEM 120 MG PO (05:30)
--- NOTE | 2025-03-04 06:00 | PTCARENOTE ---
Patient A+A+Ox3. No neurological deficits noted. AM lab work collected and sent. Patient assisted OOB to chair with minimal assistance. Standing scale weight 95.1 kg. No c/o headache, dizziness or lightheadedness. Patient resting in chair
without difficulty. Assessment/Interventions as documented.
[2025-03-04] MEDS: NSS 500 IV (06:18)
[2025-03-04] MEDS: MAGNESIUM OXIDE 500 MG PO ×2 (08:15→19:58)
[2025-03-04] MEDS: NEURONTIN 100 MG PO ×3 (08:15→21:57)
[2025-03-04] MEDS: MUCINEX 600 MG PO ×2 (08:15→19:58)
[2025-03-04] MEDS: PROTONIX 40 MG PO (08:15)
[2025-03-04] MEDS: SENOKOT-S 1 TABLET PO ×2 (08:15→19:58)
[2025-03-04] MEDS: PACERONE 200 MG PO ×3 (08:15→21:58)
[2025-03-04] MEDS: CRESTOR 20 MG PO (08:15)
[2025-03-04] MEDS: PLAVIX 75 MG PO (08:15)
[2025-03-04] MEDS: LOW STRENGTH ASPIRIN 81 MG PO (08:15)
[2025-03-04] MEDS: LOPRESSOR 25 MG PO ×2 (08:15→20:00)
[2025-03-04] MEDS: LIDOCAINE 4% PATCH TOPICAL (08:16)
[2025-03-04] MEDS: BACTROBAN 2% OINTMENT 1 APPLIC NASAL ×2 (08:16→19:57)
[2025-03-04] MEDS: LASIX 40 MG IV (09:48)
[2025-03-04] MEDS: ZOFRAN 4 MG IV (09:48)
--- NOTE | 2025-03-04 10:49 | PTCARENOTE ---
assumed care of pt from previous shift RN, sinus rhythm on tele w HR 80-90's, bp 129/88. + peripheral pulses, no edema. Lungs diminished, pox 90-92% on RA, coughing and deep breathing encouraged. +bs, toleating PO intake. Pt is voiding mandy urine.
CTs w minimal amount of drainage. Pacing wire removed by CT PA. Plan of care reviewed w the pt and questions encouraged.
[2025-03-04] MEDS: LOPRESSOR 12.5 MG PO ×2 (11:53→19:59)
--- NOTE | 2025-03-04 12:00 | PTCARENOTE ---
CTs removed as ordered.
[2025-03-04] MEDS: FERRLECIT 110 MG IV (14:02)
--- NOTE | 2025-03-04 20:30 | PTCARENOTE ---
Patient received resting in bed watching movie. Patient A+A+Ox3. No neurological deficits noted. Room air. SpO2 95%. Sinus Rhythm. Heart rate 80's. Patient with no c/o chest pain, pressure or discomfort. Bowel and bladder within normal
limits. Sternal incision intact - Surgical adhesive - Open to air. Chest tube dressing intact. Right groin puncture site intact. Right knee incision - Intact - Surgical adhesive - Open to air. Positive, palpable pulses. Right I.J. Cordis.
Assessment as documented.
[2025-03-04] MEDS: ELAVIL 50 MG PO (21:58)
[2025-03-05] VITALS (10 sets, daily range): BP systolic 85–125; BP diastolic 54–68; PULSE 73; O2SAT 96; BMI 30.3
--- NOTE | 2025-03-05 00:30 | PTCARENOTE ---
Patient sleeping without difficulty. Assessment as documented.
--- NOTE | 2025-03-05 00:47 | W.PN.CT ---
Today's Communication / Plan
-
-pod #3
-no issues overnight
-BB increased, diuresis yesterday
-CTs and PW DCd
-current meds (ASA, Plavix, Crestor, Lopressor, Amio, Protonix, Elavil). Consider starting Coreg or Toprol for CM (EF 40-45%)
-follow Qt on Amio and Elavil
-encourage Is, OOB
Assessment / Plan
-
- mv-CAD with prior chest irradiation - s/p CABG x4 (In situ ABREU to LAD, LIZANDRO T of ABREU to Ramus to OM, Ao to RSVG to RPDA); LAAE (35mm Clip) by Dr. Kent on 03/02/25, pod #3
- Intraop YASIR: LVEF preop was approximately 40 to 45% with regional wall motion abnormalities mostly to the anterior apical apical and lateral uribe. Following surgery, his EF remained the same at approximately 45%, the apical and lateral uribe
remain the same as preoperatively, mild hypokinesis, the septal region did improve and appeared to be more contractile.
- Unstable Angina
- Multi Vessel CAD
- Hodgkin's Lymphoma with prior Mantle Radiation and Adriamycin at age 14
- HTN
- HLD
- Ischemic Cardiomyopathy, LVEF 40-45%, with Regional Wall Motion Abn
- Mohs procedure face and shoulder
- Acute postop blood loss anemia - stable, no transfusion
- Acute postop atelectasis
- Acute postop hypovolemia with subsequent hypervolemia
Subjective
-
Date of Service: March 05, 2025
Objective Data
-
PT 16.1 Sec (11.4-14.6) H 03/02/25 15:14
INR 1.26 03/02/25 15:14
APTT 36.3 Sec (23.4-35.0) H 03/02/25 15:14
Vital Signs
Vital Signs
Temp Pulse Resp BP Pulse Ox
98.3 F 77 16 96/59 95
03/04/25 22:00 03/04/25 22:00 03/04/25 22:00 03/04/25 22:00 03/04/25 22:00
CT Intake/Output/Weight
03/04/25 03/04/25 03/05/25
06:59 18:59 06:59
Intake Total 460 / 844.6 320 / 840 520 / 840
Output Total 330 / 1790 500 / 1200 700 / 1200
Balance 130 / -945.4 -180 / -360 -180 / -360
SaO2: 95
Physical Exam
-
General: Awake, Oriented and AOx3
Cardiovascular: Regular rate & rhythm, No Murmurs and No Gallop
Respiratory: Clear and Equal
Sternum: Stable
Incision: Clean and Intact
Extremities: No Edema and No Erythema
Data Reviewed
-
Lab Results: Results Reviewed
Medications: Active Meds Reviewed
Chest X-Ray: Report Reviewed
ECG: Report Reviewed
[2025-03-05] MEDS: TORADOL 15 MG IV ×2 (03:55→20:16)
[2025-03-05 04:02] LABS: Hemoglobin 9.5 g/dL (13.0-18.0); Mean Corp Hgb Conc. 33.9 g/dL (33.0-37.0); Mean Corpuscular Hgb 28.4 pg (27.0-31.0); Mean Corpuscular Volume 83.8 fL (80.0-94.0); Mean Platelet Volume 10.1 fL (7.4-10.4); Platelet Count 184 10^3/uL (130-400); Red Blood Cell Count 3.34 10^6/uL (4.70-6.10); Red Cell Dist. Width 13.5 % (11.5-14.5); White Blood Cell Count 8.5 10^3/uL (4.8-10.8)
--- NOTE | 2025-03-05 04:15 | PTCARENOTE ---
Patient A+A+Ox3. No neurological deficits noted. OOB to bathroom with minimal assistance. AM lab work collected and sent. Patient ambulating in room without difficulty. Back to bed. Assessment/Interventions as documented.
[2025-03-05 04:45] LABS: Blood Urea Nitrogen 23 mg/dl (9-20); Calcium 8.4 mg/dl (8.4-10.2); Carbon Dioxide 29 mmol/L (22-30); Chloride 102 mmol/L (98-107); Estimated Creatinine Clearance 115 ml/min; Glucose 101 mg/dl (70-99); Magnesium 2.4 mg/dl (1.6-2.3); Potassium 4.3 mmol/L (3.5-5.1); Sodium 138 mmol/L (135-145); eGFR > 60.00
[2025-03-05] MEDS: NON-FORMULARY ITEM 120 MG PO (06:36)
[2025-03-05] MEDS: TYLENOL 1000 MG PO ×3 (06:37→21:18)
[2025-03-05] MEDS: MUCINEX 1200 MG PO ×2 (09:07→20:06)
[2025-03-05] MEDS: PACERONE 200 MG PO ×3 (09:08→21:18)
[2025-03-05] MEDS: CRESTOR 20 MG PO (09:08)
[2025-03-05] MEDS: MAGNESIUM OXIDE 500 MG PO (09:08)
[2025-03-05] MEDS: LASIX 40 MG IV (09:08)
[2025-03-05] MEDS: PROTONIX 40 MG PO (09:08)
[2025-03-05] MEDS: PLAVIX 75 MG PO (09:08)
[2025-03-05] MEDS: LOPRESSOR 12.5 MG PO ×2 (09:08→20:07)
[2025-03-05] MEDS: NEURONTIN 100 MG PO ×3 (09:09→21:18)
[2025-03-05] MEDS: SENOKOT-S 1 TABLET PO ×2 (09:09→20:07)
[2025-03-05] MEDS: LIDOCAINE 4% PATCH TOPICAL (09:09)
[2025-03-05] MEDS: LOW STRENGTH ASPIRIN 81 MG PO (09:09)
[2025-03-05] MEDS: LOPRESSOR 25 MG PO ×2 (09:09→20:07)
[2025-03-05] MEDS: BACTROBAN 2% OINTMENT 1 APPLIC NASAL ×2 (09:17→20:07)
[2025-03-05] MEDS: MIRALAX 17 GRAMS PO (09:24)
[2025-03-05] MEDS: MUCINEX PO (09:51)
--- NOTE | 2025-03-05 09:57 | PTCARENOTE ---
assumed care of pt from previous shift RN, sinus rhythm on tele, VSS. Lungs w crackles 1/[address] up on left side. Coughing and deep breathing encouraged. +bs, tolerating PO intake. Pt voids spontaneously. Cordis d/c'ed as ordered, PIV flushes easily,
surgical sites stable. plan of care reviewed w the pt and questions encouraged.
--- NOTE | 2025-03-05 12:14 | PTCARENOTE ---
pt ambulating independently, VSS, sinus rhythm maintained on tele.
--- NOTE | 2025-03-05 12:55 | CM ---
Reviewed chart. Met with Mr. Schaffer to review discharge plans. He states he is feeling well and maybe able to go home soon. He states prior to admission he was staying with his parents for a visit. He states he is planning on staying with them for
a few weeks. He states his parents resides in a two stor y home with two steps to enter. He states he has a full flight of steps to get to bedroom/full bathroom. He states he has a powder room on the first floor. He states prior to admission he
was independent with ambulation and adls. He states he does not have any DME in the home. He states he has a prescription plan. We reviewed a home visit by the Transitional Care Nurse. He is agreeable to a home visit. Medical work-up in
progress. The discharge plan is to return home with his parents and a home visit by the Transitional Care Nurse when medically stable.
--- NOTE | 2025-03-05 13:45 | PN.CDI ---
CDI
- -
CDI:
Physician Documentation Request
Admit Date: 03/01/25 11:[address] Surgery,
03/03 Cardiology PN: 'NSTEMI, peak trop 0.1, MV CAD by cath 03/01 s/p CABG x4/ARTURO clip 03/02/25'
03/04 CT Surgery: 'Unstable Angina - Multi Vessel CAD'
Based on the above, please clarify in the progress notes the most appropriate diagnosis for your patient.
CAD with unstable angina
NSTEMI
Other
Use of terms such as suspected, likely, concern for, or probable (associated with a specific diagnosis that is being evaluated, monitored, or treated as if it exists) are acceptable and can be coded in the inpatient setting, when documented at the
time of discharge.
Thank you,
Alma Delia Currie RN, BSN
CDI Specialist
Available via [place] text
Please use your independent medical judgment in providing your response.
--- NOTE | 2025-03-05 13:54 | W.PN.CARDCBS ---
Today's Communication / Plan
-
Supportive postop care
Impression / Plan
-
PCP: Dr. Sosa
Card: Dr. Winchester
Impression:
Chest pain
Abnormal stress echo 03/01/25
NSTEMI, peak trop 0.1
MV CAD by cath 03/01 s/p CABG x4/ARTURO clip 03/02/25
h/o Hodgkin's lymphoma treated with chest radiation and Adriamycin 1989
HTN
Hyperlipidemia
Stress echo 03/01/25: Patient completed 7 min Cheng protocol for 87% MPHR, new mid anteroseptal, apical septal hypokinesis and reduction of left ventricular systolic function post exercise, LVEF at rest visually estimated 50-55% and post exercise
45-50%, exertional limiting chest pain during study that resolved with rest
ECHO 02/28/25: EF 40%, global hypokinesis, stage I diastolic dysfunction, mild MAC, mild MR, aortic sclerosis, trace TR, PAP 20 to 25 mmHg
Plan:
s/p CABG x4/ARTURO clip 03/02/25
Hemodynamically stable and doing well postop
Remains in sinus rhythm
Will need DAPT as ruled in for NSTEMI
Per CT surgery, anticipate discharge home tomorrow.
Progress Note - Uniform Room Attendant
Subjective
Date of Service: March 05, 2025
Seen and examined with family at bedside. Sitting out of bed to chair and feeling well. Ambulating with PT including stairs without difficulty.
Objective
Labs:
03/05/25 03:46
03/05/25 03:46
Labs
Hgb 9.5 g/dL (13.0-18.0) L 03/05/25 03:46
Hct 28.0 % (39.0-52.0) L 03/05/25 03:46
Plt Count 184 10^3/uL (130-400) 03/05/25 03:46
PT 16.1 Sec (11.4-14.6) H 03/02/25 15:14
INR 1.26 03/02/25 15:14
APTT 36.3 Sec (23.4-35.0) H 03/02/25 15:14
Sodium 138 mmol/L (135-145) 03/05/25 03:46
Potassium 4.3 mmol/L (3.5-5.1) 03/05/25 03:46
BUN 23 mg/dl (9-20) H 03/05/25 03:46
Creatinine 0.9 mg/dL (0.7-1.3) 03/05/25 03:46
Glucose 101 mg/dl (70-99) H 03/05/25 03:46
Vital Signs and I&O:
Vital Signs
Temp Pulse Resp BP Pulse Ox
98.2 F 73 16 107/58 92
03/05/25 12:08 03/05/25 12:08 03/05/25 12:08 03/05/25 12:08 03/05/25 12:08
Vital Signs
Temp Pulse Resp BP Pulse Ox
98.2 F 73 16 107/58 92
03/05/25 12:08 03/05/25 12:08 03/05/25 12:08 03/05/25 12:08 03/05/25 12:08
Intake & Output
03/03/25 03/04/25 03/05/25 03/06/25
06:59 06:59 06:59 06:59
Intake Total 5.26 / 2114.26 844.6 / 844.6 1160 / 1160 100 / 100
Output Total 2059 / 2059 1790 / 179 1600 / 1600
Balance 55.26 / 55.26 -945.4 / -945.4 -440 / -440 100 / 100
Physical Exam
Physical Exam
General: Well developed, well nourished in NAD.
Heart: Regular, positive S1-S2. No murmurs or rubs
Lungs: Bronchovesicular breath sounds clear bilaterally
Sternal dressings noted
Extremities: No edema
[2025-03-05] MEDS: NSS IV (14:32)
[2025-03-05] MEDS: FERRLECIT 110 MG IV (14:32)
--- NOTE | 2025-03-05 14:43 | PTCARENOTE ---
VSS, sinus rhythm maintained on tele. Pt ambulating independently.
--- NOTE | 2025-03-05 20:00 | PTCARENOTE ---
Received pt from [facility]. pt is POD #3 from CABGx4 and ARTURO clip, plan is for D/C tomorrow, 03/06. pt is resting in bed comfortably, AAOx4, states pain is 3/10. heart sounds audible, radial and DP pulses palpable. lungs clear, diminished at b/l bases,
spo2 94% on RA. +BS x4 quadrants, abdomen soft non tender. pt voiding clear yellow urine. surgical sites maintained. PIV maintained. call hawk within reach.
[2025-03-05] MEDS: MAGNESIUM OXIDE PO (20:07)
[2025-03-05] MEDS: ELAVIL 50 MG PO (21:18)
--- NOTE | 2025-03-06 | PTCARENOTE ---
pt assessment unchanged. NSR on monitor. VSS. call hawk within reach.
[2025-03-06 00:04] VITALS: BP 101/67
--- NOTE | 2025-03-06 01:11 | W.PN.CT ---
Today's Communication / Plan
-
Plan:
-No major issues overnight. Hemodynamically and neurologically intact
-Off all drips
-F/U 2-view CXR
-Switched Lopressor to Toprol Xl give ICM
-Cont. current meds (ASA, Plavix, Crestor, Lopressor, Amio, Protonix, Elavil). Consider starting Coreg or Toprol for CM (EF 40-45%)
-Monitor QT on Amio and Elavil
-Encourage Is, OOB
-Home today
Assessment / Plan
-
- mv-CAD with prior chest irradiation - s/p CABG x4 (In situ ABREU to LAD, LIZANDRO T of ABREU to Ramus to OM, Ao to RSVG to RPDA); LAAE (35mm Clip) by Dr. Kent on 03/02/25, pod #4
- Intraop YASIR: LVEF preop was approximately 40 to 45% with regional wall motion abnormalities mostly to the anterior apical apical and lateral uribe. Following surgery, his EF remained the same at approximately 45%, the apical and lateral uribe
remain the same as preoperatively, mild hypokinesis, the septal region did improve and appeared to be more contractile.
- Unstable Angina
- Multi Vessel CAD
- Hodgkin's Lymphoma with prior Mantle Radiation and Adriamycin at age 14
- HTN
- HLD
- Ischemic Cardiomyopathy, LVEF 40-45%, with Regional Wall Motion Abn
- Mohs procedure face and shoulder
- Acute postop blood loss anemia - stable, no transfusion
- Acute postop atelectasis
- Acute postop hypovolemia with subsequent hypervolemia
Discussed patient care with: Cardiology, Nursing, Respiratory Therapy, Pharmacy and Care Team
Subjective
-
Date of Service: March 06, 2025
Pt c/o mild incisional pain, otherwise feels well
Objective Data
-
PT 16.1 Sec (11.4-14.6) H 03/02/25 15:14
INR 1.26 03/02/25 15:14
APTT 36.3 Sec (23.4-35.0) H 03/02/25 15:14
Vital Signs
Vital Signs
Temp Pulse Resp BP Pulse Ox
98.2 F 78 16 112/66 92
03/06/25 00:00 03/05/25 14:39 03/06/25 00:00 03/05/25 14:39 03/06/25 00:00
CT Intake/Output/Weight
03/05/25 03/05/25 03/06/25
06:59 18:59 06:59
Intake Total 840 / 1160 100 / 100
Output Total 1100 / 1600 325 / 325
Balance -260 / -440 100 / -225 -325 / -225
SaO2: 92 (RA)
Physical Exam
-
General: Awake, Oriented and AOx3
Cardiovascular: Regular rate & rhythm, No Murmurs, No Rub and No Gallop
Respiratory: Decreased Breath Sounds
Sternum: Stable
Incision: Clean, Dry, Intact and Dressing Intact
Extremities: Other (+trace edema)
Data Reviewed
-
Lab Results: Results Reviewed
Medications: Active Meds Reviewed
Chest X-Ray: Report Reviewed and Image Reviewed
ECG: Report Reviewed and Image Reviewed
--- NOTE | 2025-03-06 04:00 | PTCARENOTE ---
pt assessment unchanged. NSR on monitor. VSS.
[2025-03-06 04:03] VITALS: BP 102/70
[2025-03-06 05:43] LABS: Blood Urea Nitrogen 25 mg/dl (9-20); Calcium 8.6 mg/dl (8.4-10.2); Carbon Dioxide 27 mmol/L (22-30); Chloride 107 mmol/L (98-107); Estimated Creatinine Clearance 115 ml/min; Glucose 88 mg/dl (70-99); Magnesium 2.4 mg/dl (1.6-2.3); Potassium 4.2 mmol/L (3.5-5.1); Sodium 141 mmol/L (135-145); eGFR > 60.00
[2025-03-06] MEDS: NON-FORMULARY ITEM 1 MG PO (06:17)
[2025-03-06 06:20] LABS: Hematocrit 30.2 % (39.0-52.0); Hemoglobin 10.1 g/dL (13.0-18.0); Mean Corp Hgb Conc. 33.4 g/dL (33.0-37.0); Mean Corpuscular Hgb 28.1 pg (27.0-31.0); Mean Corpuscular Volume 84.1 fL (80.0-94.0); Mean Platelet Volume 10.1 fL (7.4-10.4); Platelet Count 229 10^3/uL (130-400); Red Blood Cell Count 3.59 10^6/uL (4.70-6.10); Red Cell Dist. Width 13.5 % (11.5-14.5); White Blood Cell Count 6.7 10^3/uL (4.8-10.8)
--- NOTE | 2025-03-06 07:48 | W.DCSUMMARY ---
Discharge Summary
Discharge Data
Date of Admission: 03/01/25
Date of Discharge: 03/06/25
-
Pending Results: No
Hospital Course
Primary care physician: Dr. Sosa
Outpatient submarine element coordinator: Berto Winchester
Inpatient consultants: [facility] Card[facility], pulmonary rn corrections
Procedures:
1. CABG, left atrial appendage clip
Primary Diagnosis:
1. NSTEMI
Secondary Diagnoses:
1. Multi Vessel CAD
2. Hodgkin's Lymphoma with prior Mantle Radiation and Adriamycin
3. HTN
4. HLD
5. Ischemic Cardiomyopathy with Regional Wall Motion Abn
6. Mohs procedure face and shoulder
7. Acute postop blood loss anemia - stable, no transfusion
8. Acute postop atelectasis
9. Acute postop hypovolemia with subsequent hypervolemia
HPI: male was admitted to [facility] on 03/01/2025 following an abnormal outpatient stress echo. Echocardiogram done for evaluation of exertional right shoulder discomfort that travels across the chest and has been present
approximately 1 year.
Hospital course: Ruled in for NSTEMI with max troponin 0.106. Left heart catheterization confirmed multivessel coronary disease. Radial mapping identified an incomplete left palmar arch. Patient underwent CABG x 4 with ABREU to LAD, LIZANDRO Y graft
from ABREU to diagonal and OM, SVG to PDA, left atrial exclusion with #[address] Yoni Kent on 03/02/2025.. IntraOp YASIR reported EF of 40-45%. Patient received no intraoperative blood products and returned to CVICU on Levophed, insulin, and
Precedex. Patient extubated at 1740 on the day of surgery. On postoperative day #1, beta-zehra was titrated upward for heart rates in the high 80s to 90s. Aspirin and Plavix were initiated. Rosuvastatin was increased to high intensity dose 20
mg daily. Right left pleural drains were removed. Postoperative day #2, epicardial ventricular wires were removed and remaining 2 mediastinal chest drains were discontinued. Patient was diuresed. On postoperative day #3, right IJ was removed and
patient again diuresed with 40 mg of IV Lasix. Patient's [id number]-dz-[id number] received fresh and from surgeon for patient to wear a [email or web address] bio button (remote HE/RR monitoring) which her company supplied. Patient ambulated with cardiac rehab and was
deemed stable for discharge.
Home medication changes:
Stop:
Olmasartan-HCTZ
Omeprazole changed to Protonix while on Plavix
Rosuvastatin increased to 20mg daily
Discharge Plan
-
Patient Disposition: Home (Routine Discharge)
Discharge Diagnosis/Procedures: CABG x 4, left atrial appendage clip
Condition: Good
Diet: Low Cholesterol and Low Sodium
Activity: No strenuous activity
Driving Restrictions: Not until seen by your Dr
Bathing Restrictions: OK to Shower
Other Services: Cardiac Rehab
Specialty Instructions: Weigh Daily- Call MD for wt gain/loss 3 lbs overnight/5 lbs in 1 week
Stand Alone Forms: DC Instructions- Cath/EP Lab
Referrals:
CT Transitional Care Nurse [Outside] - in one to two days
(
The Cardiothoracic Transitional Care Nurse will call you to set up a visit in 1-2 days.)
[facility]. Cardiac Rehab [Outside] - 04/17/25 11:00 am
(Cardiac Rehab Orientation appointment is on April 17 at 11am.
The Cardiac Rehab gym is located on the first floor of the [facility].)
Rory Escobar MD [Active] - in six weeks
Ana Kay PA-C [Specified Professional Personl] - 04/09/25 8:20 am
UNKNOWN - PT DOES,NOT KNOW [Family Provider] -
Aixa Rico CRNP [Specified Professional Personl] - 04/03/25 1:15 pm
Prescriptions:
New
aspirin 81 mg Tablet,Chewable
81 mg PO DAILY Qty: 0 0RF
rosuvastatin 20 mg Tablet
20 mg PO DAILY Qty: 30 2RF
clopidogrel 75 mg Tablet
75 mg PO DAILY Qty: 30 2RF
pantoprazole 40 mg Tablet,Delayed Release (Dr/Ec)
40 mg PO DAILY Qty: 30 2RF
oxycodone 5 mg Tablet
5 mg PO Q4HPRN PRN (Reason: severe pain) Qty: 10 0RF
cyclobenzaprine 10 mg Tablet
5 mg PO Q8HPRN PRN (Reason: muscle spasm) Qty: 10 0RF
metoprolol succinate [Toprol XL] 50 mg tablet extended release 24 hr
50 mg PO DAILY Qty: 30 2RF
Continued
amitriptyline 50 mg Tablet
50 mg PO HS
finasteride 1 mg Tablet
1 mg PO HS
tadalafil 20 mg Tablet
20 mg PO DAILYPRN PRN (Reason: ed)
thyroid (pork) [PLACEMENT ASSISTANT Thyroid] 120 mg Tablet
120 mg PO DAILY
Discontinued
rosuvastatin 10 mg Tablet
10 mg PO HS
olmesartan-hydrochlorothiazide 20-12.5 mg tablet
1 tab PO HS
omeprazole magnesium [Prilosec OTC] 20 mg Tablet,Delayed Release (Dr/Ec)
20 mg PO DAILY
Discharge Orders:
Discharge Patient (As Directed); Ordered 03/06/25
Ordered By: Alexandrea Adams
Care Plan Goals
Care Plan Goals:
Problem: Readiness for enhanced knowledge related to diagnosis and treatment plan
Goal: Understand your diagnosis and treatment plan needs, including medications if applicable.
Instructions: Know your diagnosis, underlying causes and treatment plan options, including medications if applicable. Consult with your health care team to learn about your diagnosis and treatment plan, including medications if applicable.
Discharge Date and Time
Print Language: LAO
[2025-03-06 07:52] VITALS: BP 151/86
--- NOTE | 2025-03-06 08:00 | PTCARENOTE ---
pt received from previous RN, oriented, OOB in chair. SR on the monitor, HR 80-90s. SBP 150s. palpable pulses. pt on RA, 95% POX. lungs clear, L base crackles. IS encouraged. pt abdomen s/n, denies n/v. diet tolerated. voids. ambulates
independently. surgical sites [facility]. PIV. see worklist for VS, I&O, and assessment.
[2025-03-06] MEDS: TYLENOL 1000 MG PO (08:28)
[2025-03-06] MEDS: NEURONTIN 100 MG PO (08:28)
[2025-03-06] MEDS: BACTROBAN 2% OINTMENT 1 APPLIC NASAL (08:29)
[2025-03-06] MEDS: TOPROL XL 50 MG PO (08:29)
[2025-03-06] MEDS: LIDOCAINE 4% PATCH TOPICAL (08:29)
[2025-03-06] MEDS: MUCINEX 1200 MG PO (08:29)
[2025-03-06] MEDS: SENOKOT-S 1 TABLET PO (08:29)
[2025-03-06] MEDS: LOW STRENGTH ASPIRIN 81 MG PO (08:29)
[2025-03-06] MEDS: PROTONIX 40 MG PO (08:29)
[2025-03-06] MEDS: CRESTOR 20 MG PO (08:29)
[2025-03-06] MEDS: PLAVIX 75 MG PO (08:29)
[2025-03-06] MEDS: PACERONE 200 MG PO (08:29)
--- NOTE | 2025-03-06 08:56 | CM ---
Reviewed chart. Met with Mr. Schaffer to review discharge plans. He states he is feeling well and maybe able to go home soon. We reviewed a home visit by the Transitional Care Nurse. He is agreeable to a home visit. He is planning on going home
with parents for his recovery. They reside in a two story home with two steps to enter. He has a full flight of steps to get to bedroom/full bathroom. He has a powder room on the first floor. Prior to admission he was independent with ambulation
and adls. He does not have any DME in the home. He has a prescription plan. Medical work-up in progress. The discharge plan is to return home with parents and a home visit by the Transitional Care Nurse when medically stable.
[2025-03-06] MEDS: AFLURIA (36 mos+) 2024-2025 FORMULA 0.5 ML IM (09:41)
--- NOTE | 2025-03-06 10:42 | PTCARENOTE ---
pt discharged home, discharge instructions reviewed w/ patient and brother. home meds reviewed. questions answered. IV and tele dc'd. Flu vaccine given as ordered. pt dressed self, pt left via wheelchair w/ all belongings.
--- NOTE | 2025-03-06 12:40 | W.PN.CARDCBS ---
Today's Communication / Plan
-
Stable cardiology status for discharge
Impression / Plan
-
PCP: Dr. Sosa
Card: Dr. Winchester
Impression:
Chest pain
Abnormal stress echo 03/01/25
NSTEMI, peak trop 0.1
MV CAD by cath 03/01 s/p CABG x4/ARTURO clip 03/02/25
h/o Hodgkin's lymphoma treated with chest radiation and Adriamycin 1989
HTN
Hyperlipidemia
Stress echo 03/01/25: Patient completed 7 min Cheng protocol for 87% MPHR, new mid anteroseptal, apical septal hypokinesis and reduction of left ventricular systolic function post exercise, LVEF at rest visually estimated 50-55% and post exercise
45-50%, exertional limiting chest pain during study that resolved with rest
ECHO 02/28/25: EF 40%, global hypokinesis, stage I diastolic dysfunction, mild MAC, mild MR, aortic sclerosis, trace TR, PAP 20 to 25 mmHg
Plan:
Stable cardiology status for discharge
Remains in sinus rhythm
Discharged on aspirin and Plavix with non-STEMI
Will need repeat echo at some point to assess with her ejection fraction improved status post revascularization
Follow-up arranged
Discussed with CT surgery
Progress Note - Order Desk Clerk
Subjective
Date of Service: March 06, 2025
No complaints
Objective
Labs:
03/06/25 05:07
03/06/25 05:07
Labs
Hgb 10.1 g/dL (13.0-18.0) L 03/06/25 05:07
Hct 30.2 % (39.0-52.0) L 03/06/25 05:07
Plt Count 229 10^3/uL (130-400) D 03/06/25 05:07
PT 16.1 Sec (11.4-14.6) H 03/02/25 15:14
INR 1.26 03/02/25 15:14
APTT 36.3 Sec (23.4-35.0) H 03/02/25 15:14
Sodium 141 mmol/L (135-145) 03/06/25 05:07
Potassium 4.2 mmol/L (3.5-5.1) 03/06/25 05:07
BUN 25 mg/dl (9-20) H 03/06/25 05:07
Creatinine 0.9 mg/dL (0.7-1.3) 03/06/25 05:07
Glucose 88 mg/dl (70-99) 03/06/25 05:07
Vital Signs and I&O:
Vital Signs
Temp Pulse Resp BP Pulse Ox
98.3 F 79 18 151/86 95
03/06/25 08:00 03/06/25 10:00 03/06/25 08:00 03/06/25 07:52 03/06/25 10:03
Vital Signs
Temp Pulse Resp BP Pulse Ox
98.3 F 79 18 151/86 95
03/06/25 08:00 03/06/25 10:00 03/06/25 08:00 03/06/25 07:52 03/06/25 10:03
Intake & Output
03/04/25 03/05/25 03/06/25 03/07/25
06:59 06:59 06:59 06:59
Intake Total 844.6 / 844.6 1160 / 1160 100 / 100 250 / 250
Output Total 1790 / 1790 1600 / 1600 675 / 675
Balance -945.4 / -945.4 -440 / -440 -575 / -575 250 / 250
Physical Exam
Physical Exam
General: Well developed, well nourished in NAD.
Neck: Supple, no JVD, HJR, carotids +2 B/L, no bruits bilaterally.
Heart: Non displaced PMI, RRR, no murmurs, No S3, S4, no rubs.
Lungs: Scattered rhonchi
Sternal dressings noted
Extremities: No clubbing, cyanosis or edema bilaterally.
Neuro: Grossly nonfocal, awake, alert and oriented x3.
== END 2025-03-06 10:48 | disposition home or self-care (01) | DRG 234 ==
LOC: CVICU 11:48
PROVIDERS: Anesthesiology; Clinical Nurse Specialist Acute Care; Internal Medicine Interventional Cardiology; Nurse Practitioner; Nurse Practitioner Adult Health; Physician Assistant; Physician Assistant Medical; ADMITTING PHYSICIAN Internal Medicine Cardiovascular Disease; ATTENDING PHYSICIAN Thoracic Surgery (Cardiothoracic Vascular Surgery); CONSULT PHYSICIAN Internal Medicine Critical Care Medicine; EMERGENCY PHYSICIAN Emergency Medicine
PROC: B2151ZZ Fluoroscopy of Left Heart using Low Osmolar Contrast (ICD-10-PCS; 2025-03-01)
PROC: 4A023N7 Measurement of Cardiac Sampling and Pressure, Left Heart, Percutaneous Approach (ICD-10-PCS; 2025-03-01)
PROC: B2111ZZ Fluoroscopy of Multiple Coronary Arteries using Low Osmolar Contrast (ICD-10-PCS; 2025-03-01)
PROC: 5A1221Z Performance of Cardiac Output, Continuous (ICD-10-PCS; 2025-03-02)
PROC: 06BP4ZZ Excision of Right Saphenous Vein, Percutaneous Endoscopic Approach (ICD-10-PCS; 2025-03-02)
PROC: 02L70CK Occlusion of Left Atrial Appendage with Extraluminal Device, Open Approach (ICD-10-PCS; 2025-03-02)
PROC: 021009W Bypass Coronary Artery, One Artery from Aorta with Autologous Venous Tissue, Open Approach (ICD-10-PCS; 2025-03-02)
PROC: 02100Z9 Bypass Coronary Artery, One Artery from Left Internal Mammary, Open Approach (ICD-10-PCS; 2025-03-02)
PROC: 02110Z8 Bypass Coronary Artery, Two Arteries from Right Internal Mammary, Open Approach (ICD-10-PCS; 2025-03-02)
PROC: B24BZZ4 Ultrasonography of Heart with Aorta, Transesophageal (ICD-10-PCS; 2025-03-02)
DX: I21.4 Non-ST elevation (NSTEMI) myocardial infarction (principal); D62 Acute posthemorrhagic anemia; J98.11 Atelectasis; Q21.12 Patent foramen ovale; I25.10 Atherosclerotic heart disease of native coronary artery without angina pectoris; I25.5 Ischemic cardiomyopathy; E86.1 Hypovolemia; I50.9 Heart failure, unspecified; R91.8 Other nonspecific abnormal finding of lung field; E78.00 Pure hypercholesterolemia, unspecified; E03.9 Hypothyroidism, unspecified; I11.0 Hypertensive heart disease with heart failure; Z79.899 Other long term (current) drug therapy; Z85.72 Personal history of non-Hodgkin lymphomas; Z92.21 Personal history of antineoplastic chemotherapy; Z92.3 Personal history of irradiation
CPT/HCPCS: 93017; 71045; 71046; 71250; 80048; 80053; 81003; 81015; 82248; 82330; 82565; 82805; 82947; 82962; 83036; 83735; 84132; 84302; 84484; 84520; 85014; 85018; 85025; 85027; 85049; 85610; 85730; 86850; 86900; 86901; 86920; 90686; 93005; 93312; 93320; 93325; 93350; 93458; 93880; 93923; 93931; 94002; 99152; 99153; 99285; C1894; G0008; J2916; P9045; P9047; Q9967

== ENCOUNTER 2025-04-27 16:15 | Outpatient (RCR) | payer BC, SELFPAY | END 2025-04-27 23:59 | disposition home or self-care (01) | LOC: CRHB 16:15 | PROVIDERS: ATTENDING PHYSICIAN Internal Medicine Cardiovascular Disease; FAMILY PHYSICIAN Family Medicine | DX: I25.10 Atherosclerotic heart disease of native coronary artery without angina pectoris (principal); Z95.1 Presence of aortocoronary bypass graft | CPT/HCPCS: 93797; 93798 ==

== ENCOUNTER 2025-05-28 16:47 | Outpatient (RCR) | payer BC, SELFPAY | END 2025-05-28 23:59 | disposition home or self-care (01) | LOC: CRHB 16:47 | PROVIDERS: ATTENDING PHYSICIAN Internal Medicine Cardiovascular Disease; FAMILY PHYSICIAN Family Medicine | DX: I25.10 Atherosclerotic heart disease of native coronary artery without angina pectoris (principal); Z95.1 Presence of aortocoronary bypass graft | CPT/HCPCS: 93797; 93798 ==

== ENCOUNTER 2025-06-27 16:07 | Outpatient (RCR) | payer BC, SELFPAY | END 2025-06-27 23:59 | disposition home or self-care (01) | LOC: CRHB 16:07 | PROVIDERS: ATTENDING PHYSICIAN Internal Medicine Cardiovascular Disease; FAMILY PHYSICIAN Family Medicine | DX: Z95.1 Presence of aortocoronary bypass graft (principal) | CPT/HCPCS: 93797; 93798 ==

== ENCOUNTER 2025-11-19 06:25 | Day surgery (SDC) | payer BC, SELFPAY | END 2025-11-19 15:13 | disposition home or self-care (01) | LOC: GI 06:25 | PROVIDERS: ATTENDING PHYSICIAN Internal Medicine Gastroenterology | DX: Z12.11 Encounter for screening for malignant neoplasm of colon (principal); D12.3 Benign neoplasm of transverse colon; K63.5 Polyp of colon; K55.20 Angiodysplasia of colon without hemorrhage; K57.30 Diverticulosis of large intestine without perforation or abscess without bleeding; K62.1 Rectal polyp; K64.8 Other hemorrhoids; K22.70 Barrett's esophagus without dysplasia; K21.00 Gastro-esophageal reflux disease with esophagitis, without bleeding; K22.89 Other specified disease of esophagus; K44.9 Diaphragmatic hernia without obstruction or gangrene; K31.7 Polyp of stomach and duodenum | CPT/HCPCS: 45385; 43239; 88305 ==